=== PATIENT | female | born 1935 | race Caucasian/White ===

== ENCOUNTER 2018-02-26 18:04 | Inpatient (IN) ==
--- NOTE | 2018-02-26 18:40 | Emergency Department Note ---
Fall HPI - General Chief Complaint: Fall Stated Complaint: shakiness, fall Time Seen by Provider: 02/26/18 18:12 Source: patient Mode of arrival: ambulatory - History of Present Illness HPI Narrative: Temperature 98, pulse is 92 respiratory rate 22 blood pressure 139/66 pulse ox is 94%. Patient was seen on 02/22/18 cough with wheezing she is treated for possible pneumonia although the x-ray report reveals no obvious infiltrate. Patient states she is feeling weaker she had a fall yesterday she told the triage nurse that she hit her head possibly lost consciousness although she had changed the story on interviewing and denies any head involvement she is complaining of some low back pain however her main complaint is that she has been having some increased weakness. She does have a history of COPD and is a former smoker denies any chest pain is having headache. She is alert and oriented she knows where she is in response to questions appropriately no neurologic findings denies neck pain - Related Data Home Medications Medication Instructions Recorded Confirmed Albuterol Sulfate 2.5 mg IH BID 12/26/14 01/20/18 Fish Oil/Dha/Epa [Fish Oil 1,200 1 each PO DAILY 12/26/14 01/20/18 mg Fish Oil] Mirtazapine [Remeron] 15 mg PO HS 12/26/14 01/20/18 Mometasone/Formoterol [Dulera 100 2 puff IH BID 12/26/14 01/20/18 Mcg/5 Mcg Inhaler] Omeprazole [PriLOSEC] 40 mg PO ACB 12/26/14 01/20/18 Pramipexole [Mirapex] 0.25 - 0.5 mg PO HS 12/26/14 01/20/18 Pravastatin [Pravachol] 20 mg PO HS 12/26/14 01/20/18 Tiotropium Zullinger [Spiriva] 18 mcg INH DAILY 12/26/14 01/20/18 traZODone HCL [Desyrel] 75 mg PO HS 12/26/14 01/20/18 Fluticasone Propionate [Flonase] 1 spray NS DAILY 08/30/16 01/20/18 ascorbic acid (vitamin C) 500 mg 1 g PO QDAY tab 12/07/16 01/20/18 tablet cholecalciferol (vitamin D3) 2,000 2,000 unit PO QDAY cap 12/07/16 01/20/18 unit capsule cranberry 400 mg capsule 400 mg PO ONCE 12/07/16 01/20/18 magnesium oxide,aspartate,citrate mg PO 12/07/16 01/20/18 400 mg capsule multivitamin capsule 1 tab-cap PO QDAY 12/07/16 01/20/18 vit C 150 mg-vit E 30 unit-lutein 1 cap PO QDAY 12/07/16 01/20/18 5 [id number] 3 150 mg capsule vitamin B complex tablet 1 tab-cap PO QDAY 12/07/16 01/20/18 hydrocodone 7.5 mg-acetaminophen 1 tab PO Q6H 07/20/17 01/20/18 325 mg tablet losartan 50 mg-hydrochlorothiazide 1 tab PO QDAY 07/20/17 01/20/18 12.5 mg tablet Previous Rx's Medication Instructions Recorded Aspirin [Ecotrin] 325 mg PO QDAY #30 tab.ec 01/01/15 Ipratropium [Atrovent] 2.5 ml NEB Q6HRT #120 ampul.neb 01/31/15 mupirocin 2 % topical ointment 1 applic TOPICAL BID #30 g 07/27/17 Benzonatate [Tessalon Perle] 100 mg PO TID PRN 5 Days #15 cap 10/24/17 phenazopyridine 100 mg tablet 100 mg PO TID PRN #20 tab 01/20/18 Nitrofurantoin Monohyd/M-Cryst 100 mg PO BID #14 cap 02/01/18 [Macrobid 100 mg Capsule] Azithromycin [Zithromax] 250 mg PO DAILY #4 tab 02/22/18 guaiFENesin/CODEINE [Robitussin AC] 10 ml PO Q4HP PRN #240 ml 02/22/18 predniSONE [Prednisone] 20 mg PO DAILY #23 tab 02/22/18 Estrogen Cream 1 mg VAGINAL .QOD #60 g 02/24/18 Allergies Allergy/AdvReac Type Severity Reaction Status Date / Time cephalexin Allergy Itching Verified 02/26/18 18:09 doxycycline Allergy Itching Verified 02/26/18 18:09 levofloxacin Allergy Itching Verified 02/26/18 18:09 Sulfa (Sulfonamide Allergy Itching Verified 02/26/18 18:09 Antibiotics) Review of Systems All systems ED: reviewed and negative except as stated. Constitutional: Denies: fever, chills Eyes: Denies: eye pain ENT ED: Denies: ear pain Cardiovascular: Denies: chest pain, palpitations, dyspnea on exertion, orthopnea , edema Respiratory: Denies: shortness of breath, cough, wheezes, phlegm Gastrointestinal: Denies: abdominal pain Fall PMH - Past Medical History Medical history: Reports: COPD, dementia, GERD, hyperlipidemia, other (frequent UTIs) Psychiatric history: Reports: no psych history [employer] history: Reports: non-contributory - Social History smoking status: Former smoker Alcohol use: Reports: None Drug use: Reports: none Physical Exam Limitations: no limitations General appearance: alert Head: atraumatic, normocephalic Eye: Present: normal appearance, PERRL ENT: normal exam, normal oropharynx Neck: Present: normal inspection, full ROM Chest: Present: normal inspection. Absent: symmetric chest wall rise, tenderness Respiratory: Present: normal lung sounds bilaterally. Absent: respiratory distress, rales/crackles, wheezes Cardiovascular: Present: regular rate. Absent: normal rhythm, bradycardia, tachycardia Abdominal: Present: soft, distention Extremities: Present: normal inspection, full ROM Back: Present: normal inspection, full ROM, tenderness Neurological: Present: alert, oriented X3, CN II-XII intact, normal gait. Absent: motor sensory deficit Psychiatric: Present: normal affect, normal mood Course Vital Signs Temperature 98.0 F 02/26/18 18:04 Pulse Rate 92 H 02/26/18 18:04 Respiratory Rate 22 02/26/18 18:04 Blood Pressure 139/66 02/26/18 18:04 Pulse Oximetry (%) 94 02/26/18 18:04 Temperature 98.0 F 02/26/18 18:04 Pulse Rate 83 02/26/18 20:31 Respiratory Rate 18 02/26/18 20:31 Blood Pressure 125/68 02/26/18 20:31 Pulse Oximetry (%) 95 02/26/18 20:31 Fall - [facility] Narrative Medical decision making narrative: Head CT cervical CT showed no acute abnormalities. Lumbosacral spine revealed no acute injuries as well degenerative joint disease and stenosis seen in the lower lumbosacral region. Chest x-ray reviewed with radiologist she has a marked amount of fibrosis noted with possible infiltrate. Lactic acid is elevated at 2.6 the white count is 12,586 segs 11 lymphocytes sodium is 139 potassium 3.8 troponin less than 0.01 pro calcitonin less than 0.05. Dr. Srivastava, consulted patient to be admitted to [facility] - Lab Data Result diagrams: 02/26/18 18:32 02/26/18 18:32 Lab Results 02/26/18 02/26/18 02/26/18 Range/Units 18:32 18:32 18:32 WBC 12.5 H (4.5-11.0) K/mcL RBC 4.30 (4.00-5.20) M/mcL Hgb 12.1 (12.0-15.0) g/dL Hct 37.6 (36.0-48.0) % MCV 87.4 (80.0-100.0) fL MCH 28.1 (26.0-34.0) pg MCHC 32.1 (31.0-36.0) g/dL RDW 16.9 H (11.5-14.5) % Plt Count 298 (140-440) K/mcL MPV 8.7 (7.4-10.4) fL Total Counted 100 Seg Neutrophils % 86 H (38-78) % Band Neutrophils % Not Reportable Lymphocytes % 11 L (15-49) % Monocytes % (Manual) 3 (1-12) % Platelet Estimate Normal (NORMAL) RBC Morphology Abnorm A (NORMAL) Anisocytosis 1+ A (NONE SEEN) VBG Lactic Acid (0.5-2.2) mmol/L Sodium 139 (133-145) mmol/L Potassium 3.8 (3.3-5.1) mmol/L Chloride 102 (96-108) mmol/L Carbon Dioxide 23 (22-30) mmol/L Anion Gap 14.0 (8-16) BUN 20 (8-23) mg/dl Creatinine 0.7 (0.6-1.1) mg/dl GFR Calculation 80 Glucose 179 H (70-105) mg/dL Calcium 9.6 (8.6-10.4) mg/dl Total Bilirubin 0.2 (0.0-1.0) mg/dL AST 20 (0-37) U/l ALT 18 (0-40) U/l Alkaline Phosphatase 51 (39-117) U/L Troponin T < 0.01 (0-0.03) ng/ml Total Protein 7.3 (5.9-8.4) gm/dL Albumin 4.0 (3.2-5.2) gm/dL Globulin 3.3 (2.2-3.7) gm/dL Albumin/Globulin Ratio 1.2 (1.0-2.3) Procalcitonin (<0.10) ng/mL 02/26/18 02/26/18 Range/Units 18:32 18:56 WBC (4.5-11.0) K/mcL RBC (4.00-5.20) M/mcL Hgb (12.0-15.0) g/dL Hct (36.0-48.0) % MCV (80.0-100.0) fL MCH (26.0-34.0) pg MCHC (31.0-36.0) g/dL RDW (11.5-14.5) % Plt Count (140-440) K/mcL MPV (7.4-10.4) fL Total Counted Seg Neutrophils % (38-78) % Band Neutrophils % Lymphocytes % (15-49) % Monocytes % (Manual) (1-12) % Platelet Estimate (NORMAL) RBC Morphology (NORMAL) Anisocytosis (NONE SEEN) VBG Lactic Acid 2.6 H (0.5-2.2) mmol/L Sodium (133-145) mmol/L Potassium (3.3-5.1) mmol/L Chloride (96-108) mmol/L Carbon Dioxide (22-30) mmol/L Anion Gap (8-16) BUN (8-23) mg/dl Creatinine (0.6-1.1) mg/dl GFR Calculation Glucose (70-105) mg/dL Calcium (8.6-10.4) mg/dl Total Bilirubin (0.0-1.0) mg/dL AST (0-37) U/l ALT (0-40) U/l Alkaline Phosphatase (39-117) U/L Troponin T (0-0.03) ng/ml Total Protein (5.9-8.4) gm/dL Albumin (3.2-5.2) gm/dL Globulin (2.2-3.7) gm/dL Albumin/Globulin Ratio (1.0-2.3) Procalcitonin < 0.05 (<0.10) ng/mL Disposition Pt seen by CONGRESSIONAL DISTRICT AIDE/PA only: No Clinical Impression: Pneumonia Disposition: Xfer As Inpt ([facility]) Condition: Fair Referrals: Jorge A Chin DO [Primary Care Provider] - Time of Disposition: 20:36
--- NOTE | 2018-02-26 19:14 | Cat Scan Report ---
Fell and hit head with dizziness and shakiness TECHNIQUE: The brain was imaged without contrast at 2.5 mm intervals. Radiation exposure was limited using dose reduction technology. FINDINGS: The bone windows show no skull fracture. There is no intracranial hemorrhage, cerebral edema or evidence of an infarct. Moderate atrophy is present, predominantly involving the frontal and temporal lobes. Associated with this is dilatation of the frontal horns of the lateral ventricles. These are chronic stable findings. No abnormal extra-axial fluid collection is present. There are scattered calcified plaques in the cavernous portions of both internal carotids. There has been no significant change since 02/01/18. IMPRESSION: Age-related degenerative changes and no acute abnormality. Dr. Wilkerson was called with the results Interpreted and Authenticated by: Angelo Cornejo 02/26/18
[2018-02-26 19:18] LABS: Mean Cell Volume 87.4 fL (80.0-100.0); Mean Corpuscular HGB Conc 32.1 g/dL (31.0-36.0); Mean Corpuscular Hemoglobin 28.1 pg (26.0-34.0); Platelet Count 298 K/mcL (140-440); Red Cell Distribution Width 16.9 % (11.5-14.5)
--- NOTE | 2018-02-26 19:20 | Cat Scan Report ---
History: Fell with neck injury TECHNIQUE: The neck was imaged without contrast at 2.5 mm intervals. Sagittal and coronal reformats were created. The radiation exposure was limited using dose reduction technology. FINDINGS: There is a reversal of the normal lordotic curvature in the spine due to chronic degenerative disc disease and arthritis. No fracture is present. There is 2 mm grade 1 spondylolisthesis at C3-4 due to arthritis in the facet joints. There is severe arthritis on the left side at the articulation of the left lateral ring of C1 and the body of C2. There are spurs at this level. The margins of the spurs or sclerotic, which indicates there are chronic. In addition there is no soft tissue swelling at this level. There is moderately severe disc space narrowing with associated spurs at C5-6 and C6-7. There is arthritis in the facet joints bilaterally from C2-3 through C6-7. In addition there is spurring of the uncinate processes at several levels. This is causing severe stenosis of the right-sided neural foramen at C3-4 with moderate stenosis on the left at C4-5, bilaterally at C5-6 and bilaterally at C6-7. The central canal appears normal in caliber. No prevertebral soft tissue swelling is present. Patient has pulmonary fibrosis in both upper lobes with honeycombing anteriorly medially in the right upper lobe. IMPRESSION: No acute fracture Advanced cervical spondylosis at multiple levels as described above Interpreted and Authenticated by: Angelo Cornejo 02/26/18
[2018-02-26] MEDS ORDERED: AZITHROMYCIN 500 MG in DEXTROSE 5% IN WATER 250 ML IV ONE (19:28)
--- NOTE | 2018-02-26 19:29 | XRay Report ---
History: Difficulty breathing FINDINGS: There is moderate interstitial pulmonary fibrosis throughout both lungs. This is a chronic stable finding. No lobar consolidation has developed. There is no evidence of pleural effusion and no obvious mass is identified. Right diaphragm is elevated. There is a loop of colon interposed between the liver and right diaphragm. The heart size is normal. There has been no significant change since 02/22/18. IMPRESSION: Moderate pulmonary fibrosis and no acute abnormality Interpreted and Authenticated by: Angelo Cornejo 02/26/18
--- NOTE | 2018-02-26 19:29 | Cat Scan Report ---
HISTORY: Fell with low back pain TECHNIQUE: The spine was imaged without contrast at 2.5 mm intervals. Sagittal and coronal reformats were created. Radiation exposure was limited using dose reduction technology. FINDINGS: No fracture or destructive bone lesion are present. There is a rudimentary disc at S1 to normal. At L5-S1 patient has had a laminectomy performed. The disc spaces normal in height and there is a small bulge. Severe arthritis is present in the left facet with mild arthritis in the right. This is causing mild to moderate stenosis left-sided neural foramen. L4-5 disc is normal in height. There is a large broad-based posterior bulge. There is also arthritis in the facets and hypertrophy of ligamentum flavum. This is causing moderate central canal stenosis and severe stenosis of the lateral recesses on each side. There is also moderate stenosis of both neural foramina. L3-4 disc is normal in height. There is a small broad-based posterior bulge and moderate arthritis in the facets. This is causing mild central canal and bilateral neural foraminal stenosis. L2-3 disc is normal in height. There is a small bulge and mild arthritis in the facets. This is not causing significant stenosis. T12-L1 and L1-2 discs measures 2.0 cm. IMPRESSION: No fracture or evidence of acute spinal injury Degenerative changes at multiple levels with large posterior bulge at L4-5 causing moderate central canal stenosis and a moderate-sized bulge at L3-4 causing mild central canal stenosis. Arthritis in the facet joints at multiple levels Dr. Wilkerson was notified. Interpreted and Authenticated by: Angelo Cornejo 02/26/18
[2018-02-26] MEDS ORDERED: 0.9 % SODIUM CHLORIDE 1,000 ML IV SCH ×2 (19:30→20:45)
[2018-02-26 19:40] LABS: ALT/SGPT 18 U/l (0-40); Albumin/Globulin Ratio 1.2 (1.0-2.3); Alkaline Phosphatase 51 U/L (39-117); Anisocytosis 1+ (NONE SEEN); Blood Urea Nitrogen 20 mg/dl (8-23); Lymphocytes % 11 % (15-49); Monocytes % (Manual) 3 % (1-12); Platelet Estimate NORMAL (NORMAL); RBC Morphology ABNORM (NORMAL); Segmented Neutrophils % 86 % (38-78)
[2018-02-26] MEDS ORDERED: ONDANSETRON 4 MG/2 ML VIAL IV ONE (21:01)
[2018-02-26] MEDS ORDERED: ONDANSETRON 4 MG/2 ML VIAL IV PRN ×2 (21:09→21:53)
[2018-02-26] MEDS ORDERED: ACETAMINOPHEN 325 MG TABLET PO PRN ×2 (21:09→21:53)
[2018-02-26] MEDS ORDERED: IPRATROPIUM/ALBUTEROL 3 ML AMPUL.NEB NEB SCH (21:15)
[2018-02-26] MEDS ORDERED: AZITHROMYCIN 250 MG in DEXTROSE 5% IN WATER 250 ML IV SCH (21:15)
--- NOTE | 2018-02-26 21:18 | Internal Med History&Physical ---
Medical - H&P: [facility] Patient information: Note initiated : 02/26/18 at 9:15 pm Service Date, if different from initiated Date: [] Patient: Linda Cooper 83 y/o F admitted on for shakiness, fall. Chief Complaint: [] History of present illness: Ms. Cooper is a 83 year old F Presents the ER because of increasing weakness and falling and shakiness. Patient first presented to the ER several days ago because of shortness of breath productive cough over the previous 24 hours as well as wheezing. She was felt to have a COPD exacerbation, with questionable developing pneumonia. She was sent home on Zithromax steroids and to follow-up with a primary care doctor. Since that time she feels her coughing is continued at productive of yellow sputum, her shortness of breath is improving. However she is continued to getting to become weak, she fell yesterday on her bottom, and today she felt quite shaky. She is unable to care for herself at home and she is brought in by family members. In the ER she was found to have a mildly elevated white blood cell count, she was afebrile, she was tachypneic, blood pressure and heart rate were stable, she did have an elevated lactate, chest x-ray was per read no acute pathology but moderate fibrosis. Patient was given several liters of fluid and started on antibiotics. Patient denies any flulike symptoms but does complain of a headache and some generalized muscle aches. She does have some nausea as well and the chills. She does feel wheezy but this is common for her. She denies any chest pain. Review of Systems: Positive for weakness shakiness chills fatigue headache nausea , denies headache /fever/chills/nausea/vomiting/chest or abdominal pain/cough/dyspnea/diarrhea. Remaining 10 point review of systems reviewed negative Medical - H&P: [facility] Medical history: Medical History (Last Reviewed 01/20/18 @ 13:14 by LIZETTE Christie) Dysuria (Acute) Bladder infection (Acute) Left lower lobe pneumonia (Acute) Acute exacerbation of chronic obstructive airways disease (Acute) Constipation (Acute) Urinary tract infection without complication (Acute) UTI (urinary tract infection) (Acute) COPD exacerbation (Acute) Urinary tract infection (Acute) Bronchitis (Acute) Bronchitis (Acute) Right ankle tendonitis (Acute) Heel spur (Acute) Urinary tract infection (Acute) Cystitis (Acute) S/P hernia surgery (Acute) Past Surgical History (Last Reviewed 01/20/18 @ 13:14 by LIZETTE Christie) H/O total hip arthroplasty (Acute) History of surgery (Acute) S/P hysterectomy (Acute) S/P sclerotherapy of varicose veins (Acute) S/P tonsillectomy (Acute) Family History (Last Reviewed 01/20/18 @ 13:14 by LIZETTE Christie) Other Cancer Diabetes Hypertension Social History (Last Updated 01/20/18 @ 13:40 by LIZETTE Christie) Patient quit smoking 20 years ago Denies alcohol use Ambulates with a cane Lives by himself Medical - H&P: Meds Home Medications Medication Instructions Recorded Confirmed Type Albuterol Sulfate 2.5 mg IH BID 12/26/14 01/20/18 History Fish Oil/Dha/Epa [Fish Oil 1,200 1 each PO DAILY 12/26/14 01/20/18 History mg Fish Oil] Mirtazapine [Remeron] 15 mg PO HS 12/26/14 01/20/18 History Mometasone/Formoterol [Dulera 100 2 puff IH BID 12/26/14 01/20/18 History Mcg/5 Mcg Inhaler] Omeprazole [PriLOSEC] 40 mg PO ACB 12/26/14 01/20/18 History Pramipexole [Mirapex] 0.25 - 0.5 mg PO HS 12/26/14 01/20/18 History Pravastatin [Pravachol] 20 mg PO HS 12/26/14 01/20/18 History Tiotropium Williamson [Spiriva] 18 mcg INH DAILY 12/26/14 01/20/18 History traZODone HCL [Desyrel] 75 mg PO HS 12/26/14 01/20/18 History Aspirin [Ecotrin] 325 mg PO QDAY #30 tab.ec 01/01/15 01/20/18 Rx Ipratropium [Atrovent] 2.5 ml NEB Q6HRT #120 ampul.neb 01/31/15 01/20/18 Rx Fluticasone Propionate [Flonase] 1 spray NS DAILY 08/30/16 01/20/18 History ascorbic acid (vitamin C) 500 mg 1 g PO QDAY tab 12/07/16 01/20/18 History tablet cholecalciferol (vitamin D3) 2,000 2,000 unit PO QDAY cap 12/07/16 01/20/18 History unit capsule cranberry 400 mg capsule 400 mg PO ONCE 12/07/16 01/20/18 History magnesium oxide,aspartate,citrate mg PO 12/07/16 01/20/18 History 400 mg capsule multivitamin capsule 1 tab-cap PO QDAY 12/07/16 01/20/18 History vit C 150 mg-vit E 30 unit-lutein 1 cap PO QDAY 12/07/16 01/20/18 History 5 [id number] 3 150 mg capsule vitamin B complex tablet 1 tab-cap PO QDAY 12/07/16 01/20/18 History hydrocodone 7.5 mg-acetaminophen 1 tab PO Q6H 07/20/17 01/20/18 History 325 mg tablet losartan 50 mg-hydrochlorothiazide 1 tab PO QDAY 07/20/17 01/20/18 History 12.5 mg tablet mupirocin 2 % topical ointment 1 applic TOPICAL BID #30 g 07/27/17 01/20/18 Rx Benzonatate [Tessalon Perle] 100 mg PO TID PRN 5 Days #15 cap 10/24/17 01/20/18 Rx phenazopyridine 100 mg tablet 100 mg PO TID PRN #20 tab 01/20/18 01/20/18 Rx Nitrofurantoin Monohyd/M-Cryst 100 mg PO BID #14 cap 02/01/18 Rx [Macrobid 100 mg Capsule] Azithromycin [Zithromax] 250 mg PO DAILY #4 tab 02/22/18 Rx guaiFENesin/CODEINE [Robitussin AC] 10 ml PO Q4HP PRN #240 ml 02/22/18 Rx predniSONE [Prednisone] 20 mg PO DAILY #23 tab 02/22/18 Rx Estrogen Cream 1 mg VAGINAL .QOD #60 g 02/24/18 Rx Allergies Allergy/AdvReac Type Severity Reaction Status Date / Time cephalexin Allergy Itching Verified 02/26/18 18:09 doxycycline Allergy Itching Verified 02/26/18 18:09 levofloxacin Allergy Itching Verified 02/26/18 18:09 Sulfa (Sulfonamide Allergy Itching Verified 02/26/18 18:09 Antibiotics) Medical - H&P: Exam - Constitutional Vitals: Temp Pulse Resp BP Pulse Ox 98.0 F 77 22 124/66 93 02/26/18 18:04 02/26/18 20:46 02/26/18 20:46 02/26/18 20:46 02/26/18 20:46 Exam: General: Alert, Awake, No acute Distress HEENT: EOMI, pupils equal round reactive light, normocephalic atraumatic, dry mucous membranes CV: RRR, No murmurs, normal s1/s2 Pulm: Mild scattered wheezing, otherwise clear, no rhonchi Abd: soft, nontender, +BS x4 Ext: no clubbing/cyanosis/edema Neuro: Alert, no focal deficits, moves all extremities Skin: warm/dry Medical - H&P: Reslt - Labs CBC & Chem 7: 02/26/18 18:32 02/26/18 18:32 Labs: Short CBC 02/26/18 Range/Units 18:32 WBC 12.5 H (4.5-11.0) K/mcL Hgb 12.1 (12.0-15.0) g/dL Hct 37.6 (36.0-48.0) % Plt Count 298 (140-440) K/mcL BMP 02/26/18 18:32 Sodium 139 Potassium 3.8 Chloride 102 Carbon Dioxide 23 BUN 20 Creatinine 0.7 Glucose 179 H Calcium 9.6 Cardiac Enzymes 02/26/18 Range/Units 18:32 Troponin T < 0.01 (0-0.03) ng/ml Liver Function 02/26/18 Range/Units 18:32 Total Bilirubin 0.2 (0.0-1.0) mg/dL AST 20 (0-37) U/l ALT 18 (0-40) U/l Alkaline Phosphatase 51 (39-117) U/L Albumin 4.0 (3.2-5.2) gm/dL Medical - H&P: A/P - Narrative A/P Narrative: A: *Pneumonia, likely viral: *Sepsis: Secondary to above *Generalized weakness/fall: *Recent acute exacerbation COPD(is not on home oxygen): Improving *Pulmonary fibrosis: *HTN: P: -Finish course of IV azithromycin -Respiratory panel pending -IV fluid hydration -Follow-up lactate level -Scheduled and as needed nebs/IS/ Acapella -Sputum culture pending -Continue home medications except for her diuretic -PT/OT, CM for possible placement -ppx: Lovenox/home PPI
[2018-02-26] MEDS ORDERED: 0.9 % SODIUM CHLORIDE 10 ML SYRINGE IV SCH (22:00)
[2018-02-26] MEDS: 0.9 % SODIUM CHLORIDE 10 ML SYRINGE IV SCH (23:51)
[2018-02-27 02:13] LABS: Appearance,Urine CLEAR; Bacteria,Urine MOD /hpf (0); Bilirubin,Urine NEG (NEG); Color,Urine STRAW; Glucose,Urine (UA) NEGATIVE (NEG); Leukocyte Esterase,Urine NEG /uL (NEG); Protein,Urine NEG (NEG); Urine Blood NEG mg/dL (<0.03); Urine RBC < 1 /hpf (0-1); Urine Squamous Epithelial Cell < 1 /hpf (0-4); Urine Transitional Epi Cells < 1 /hpf (0-2); Urine WBC 1 /hpf (0-4); Urobilinogen,Urine NEG (NEG)
[2018-02-27] MEDS: IPRATROPIUM/ALBUTEROL 3 ML AMPUL.NEB NEB SCH ×3 (04:51→20:34)
[2018-02-27 05:43] LABS: Basophils # (Auto) 0 K/mcL (0.0-0.3); Basophils % (Auto) 0.2 % (0.0-2.0); Eosinophils # (Auto) 0 K/mcL (0.0-0.7); Eosinophils % (Auto) 0.2 % (0.0-7.0); Lymphocytes # (Auto) 3.7 K/mcL (1.5-4.8); Mean Cell Volume 88.5 fL (80.0-100.0); Mean Corpuscular HGB Conc 31.8 g/dL (31.0-36.0); Mean Corpuscular Hemoglobin 28.2 pg (26.0-34.0); Monocytes # (Auto) 1.2 K/mcL (0.1-0.9); Monocytes % (Auto) 8.6 % (1.0-12.0); Platelet Count 267 K/mcL (140-440); RBC 4.04 M/mcL (4.00-5.20); Red Cell Distribution Width 16.1 % (11.5-14.5)
[2018-02-27] MEDS: 0.9 % SODIUM CHLORIDE 10 ML SYRINGE IV SCH ×3 (06:10→22:18)
[2018-02-27 06:35] LABS: ALT/SGPT 16 U/l (0-40); Albumin 3.8 gm/dL (3.2-5.2); Albumin/Globulin Ratio 1.4 (1.0-2.3); Alkaline Phosphatase 46 U/L (39-117); Bilirubin,Direct < 0.2 mg/dL (0.0-0.3); Blood Urea Nitrogen 19 mg/dl (8-23); Gamma Glutamyl Transpeptidase 20 U/L (5-36)
[2018-02-27] MEDS ORDERED: HYDROCODONE/APAP 7.5/325MG TABLET PO PRN (07:15)
--- NOTE | 2018-02-27 07:19 | Internal Med Progress Note ---
Medical - PN: Subj Patient information: Note initiated : 02/27/18 at 7:16 am Service Date, if different from initiated Date: [] Patient: Linda Cooper 83 y/o F admitted on 02/26/18 for shakiness, fall. Chief Complaint: [] Interval history: Ms. Cooper is a 83 year old F Presents the ER because of increasing weakness and falling and shakiness. Patient first presented to the ER several days ago because of shortness of breath productive cough over the previous 24 hours as well as wheezing. She was felt to have a COPD exacerbation, with questionable developing pneumonia. She was sent home on Zithromax steroids and to follow-up with a primary care doctor. Since that time she feels her coughing is continued at productive of yellow sputum, her shortness of breath is improving. However she is continued to getting to become weak, she fell yesterday on her bottom, and today she felt quite shaky. She is unable to care for herself at home and she is brought in by family members. In the ER she was found to have a mildly elevated white blood cell count, she was afebrile, she was tachypneic, blood pressure and heart rate were stable, she did have an elevated lactate, chest x-ray was per read no acute pathology but moderate fibrosis. Patient was given several liters of fluid and started on antibiotics. Patient denies any flulike symptoms but does complain of a headache and some generalized muscle aches. She does have some nausea as well and the chills. She does feel wheezy but this is common for her. She denies any chest pain. 02/27 Difficult sleeping last night, new admission, and restless leg syndrome. Still very weak, has cough and some shortness of breath but mildly improving. Review of Systems: denies headache/fever/chills/nausea/vomiting/chest or abdominal pain/diarrhea. Otherwise see above. - Constitutional Vitals: Vital Signs Temp Pulse Resp BP Pulse Ox 97.2 F 72 16 166/75 92 02/27/18 03:45 02/27/18 04:51 02/27/18 04:51 02/27/18 03:45 02/27/18 03:45 Period Temp Pulse Resp BP Sys/Smith Pulse Ox Last 24 Hr 97.0 F-98.3 F 68-92 15-26 101-166/48-75 90-96 Intake and Output 02/26/18 02/27/18 02/27/18 21:59 05:59 13:59 Intake Total 250 / 250 360 / 360 Output Total 3 / 3 Balance 250 / 250 357 / 357 Weight 71.214 kg Intake & Output: Intake & Output 02/26/18 02/27/18 02/27/18 21:59 05:59 13:59 Intake Total 250 / 250 360 / 360 Output Total 3 / 3 Balance 250 / 250 357 / 357 Weight 71.214 kg Intake: IV 250 / 250 Zithromax 500 mg In Dextrose 5% 250 / 250 in Water 250 ml @ 250 mls/hr IV ONCE ONE Rx#:[id number] Oral 360 / 360 Output: # of times incontinent of urine 3 / 3 Other: Meal Soup, bread, crackers Percent of Meal Consumed 100% Feeding Ability Independent Exam: General: Alert, Awake, No acute Distress HEENT: EOMI, neck supple CV: RRR, No murmurs, normal s1/s2 Pulm: No wheezing today, no rhonchi Abd: soft, nontender, +BS x4 Ext: no clubbing/cyanosis/edema Neuro: Alert, no focal deficits, moves all extremities Skin: warm/dry Medical - PN: Obj Da - Labs CBC & Chem 7: 02/27/18 03:38 02/27/18 03:38 Labs: Abnormal Lab Results 02/27/18 02/27/18 02/27/18 03:38 03:38 01:30 WBC 14.2 H Hgb 11.4 L Hct 35.8 L RDW 16.1 H Gran # 9.3 H [place] # (Auto) 1.2 H Seg Neutrophils % Lymphocytes % RBC Morphology Anisocytosis VBG Lactic Acid Glucose Lactate Dehydrogenase 258 H Triglycerides 336 H Urine Bacteria Mod A 02/26/18 02/26/18 02/26/18 22:05 18:56 18:32 WBC 12.5 H Hgb Hct RDW 16.9 H Gran # [place] # (Auto) Seg Neutrophils % 86 H Lymphocytes % 11 L RBC Morphology Abnorm A Anisocytosis 1+ A VBG Lactic Acid < 0.2 L 2.6 H Glucose Lactate Dehydrogenase Triglycerides Urine Bacteria 02/26/18 18:32 WBC Hgb Hct RDW Gran # [place] # (Auto) Seg Neutrophils % Lymphocytes % RBC Morphology Anisocytosis VBG Lactic Acid Glucose 179 H Lactate Dehydrogenase Triglycerides Urine Bacteria Meds: Medications Acetaminophen (Tylenol) 650 mg PO Q6HP PRN PRN Reason: PAIN/FEVER > 101 Albuterol/Ipratropium (Duoneb) 3 ml NEB Q8H [facility] Last Admin: 02/27/18 04:51 Dose: 3 ml Enoxaparin Sodium (Lovenox) 40 mg SQ DAILY [facility] Famotidine (Pepcid) 20 mg PO BID [facility] Azithromycin 250 mg/ Dextrose 250 mls @ 250 mls/hr IV Q24H [facility] Stop: 03/01/18 09:59 Ondansetron HCl (Zofran) 4 mg IV Q4HP PRN PRN Reason: Nausea And Vomiting Prednisone (Prednisone) 20 mg PO QAC [facility] Sodium Chloride (Saline Flush) 10 ml IV Q8 [facility] Last Admin: 02/27/18 06:10 Dose: 10 ml Medical - PN: A/P - Time Spent With Patient Total time spent is greater than 50% in coordination of care (as documented) at patient's floor/unit and/or counseling patient: - Narrative A/P Narrative: A: *Pneumonia, likely viral: -Resp panel neg, PCT low. *Sepsis: Secondary to above, lactic acidosis resolved quickly *Generalized weakness/fall: *Recent acute exacerbation COPD(is not on home oxygen): Improving *Pulmonary fibrosis: *HTN: P: -Finish course of IV azithromycin -IV fluid hydration d/c -Scheduled and as needed nebs/IS/ Acapella -taper steroids -Sputum culture pending -Continue home medications except for her diuretic -PT/OT, CM for possible placement -ppx: Lovenox/home PPI Medical - PN: Qual - VTE Deep Vein Thrombosis/Pulmonary Embolism Present on Admission: No
[2018-02-27] MEDS ORDERED: predniSONE 20 MG TABLET PO SCH (08:00)
[2018-02-27] MEDS: FAMOTIDINE 20 MG TABLET PO SCH ×2 (08:09→20:27)
[2018-02-27] MEDS: ENOXAPARIN 40 MG/0.4 ML SYRINGE SQ SCH (08:09)
[2018-02-27] MEDS ORDERED: ENOXAPARIN 40 MG/0.4 ML SYRINGE SQ SCH (09:00)
[2018-02-27] MEDS ORDERED: FAMOTIDINE 20 MG TABLET PO SCH (09:00)
[2018-02-27] MEDS: AZITHROMYCIN 250 MG in DEXTROSE 5% IN WATER 250 ML IV SCH (10:00)
--- NOTE | 2018-02-27 10:20 | XRay Report ---
HISTORY: COPD, fell, shakiness and possible pulmonary infiltrate FINDINGS: There is moderate interstitial fibrosis throughout both lungs with the greatest involvement in the left lower lobe. There is no lobar consolidation and no evidence of mass or pleural effusion. The right diaphragm is mildly elevated and there is a loop of bowel interposed between the diaphragm and right lobe of liver. These are chronic stable findings. The heart size is normal. The pulmonary vessels are partially obscured by the overlying pulmonary fibrosis. There has been no significant change since 02/22/18. IMPRESSION: Stable pulmonary fibrosis and no acute abnormality Interpreted and Authenticated by: Angelo Cornejo 02/27/18
[2018-02-27] MEDS ORDERED: guaiFENesin 600 MG TAB.SR.12H PO PRN (11:10)
[2018-02-27] MEDS ORDERED: guaiFENesin 600 MG TAB.SR.12H PO ONE (11:11)
[2018-02-27] MEDS: MOMETASONE INH SCH ×2 (11:34→20:28)
[2018-02-27] MEDS: FORMOTEROL INH SCH ×2 (11:34→20:28)
--- NOTE | 2018-02-27 11:51 | Discharge Summary ---
Medical - DS: Prov Patient information: Note initiated : 02/27/18 at 11:49 am Service Date, if different from initiated Date: [] Patient: Linda Cooper 83 y/o F admitted on 02/26/18 for shakiness, fall. Chief Complaint: [] Date of admission: 02/26/18 21:52 Discharge date: 02/28/18 Primary care physician: Jorge A Chin Consults: 02/26/18 Consult to Physician [CONS] Stat Comment: Consulting Provider: Adolfo Mensah Reason For Exam: Physician to Consult Medical - DS: Meds - Discharge Medications Active and Home Medications: Home Medications Albuterol Sulfate 2.5 mg IH BID 12/26/14 [History Confirmed 02/26/18 Last Taken 02/26/18 09:00] Mirtazapine [Remeron] 15 mg PO HS 12/26/14 [History Confirmed 02/26/18 Last Taken 02/25/18 22:30] Mometasone/Formoterol [Dulera 100 Mcg/5 Mcg Inhaler] 2 puff IH BID 12/26/14 [ History Confirmed 02/26/18 Last Taken 02/26/18 09:00] Omeprazole [PriLOSEC] 40 mg PO ACB 12/26/14 [History Confirmed 02/26/18 Last Taken 02/26/18 09:00] Pramipexole [Mirapex] 0.25 - 0.5 mg PO HS 12/26/14 [History Confirmed 02/26/18 Last Taken 12/30/14] Pravastatin [Pravachol] 20 mg PO HS 12/26/14 [History Confirmed 02/26/18 Last Taken 12/30/14] Tiotropium [place] [Spiriva] 18 mcg INH DAILY 12/26/14 [History Confirmed Last Taken 02/26/18 09:00] traZODone HCL [Desyrel] 75 mg PO HS 12/26/14 [History Confirmed 02/26/18 Last Taken 02/25/18 22:30] cranberry 400 mg capsule 400 mg PO ONCE 12/07/16 [History Confirmed 02/26/18 Last Taken 02/26/18 09:00] multivitamin capsule 1 tab-cap PO QDAY 12/07/16 [History Confirmed 02/26/18 Last Taken Unknown] hydrocodone 7.5 mg-acetaminophen 325 mg tablet 1 tab PO Q6H 07/20/17 [History Confirmed 02/26/18 Last Taken Unknown] losartan 50 mg-hydrochlorothiazide 12.5 mg tablet 1 tab PO QDAY 07/20/17 [ History Confirmed 02/26/18 Last Taken Unknown] mupirocin 2 % topical ointment 1 applic TOPICAL BID #30 g 07/27/17 [Rx Confirmed 02/26/18 Last Taken Unknown] phenazopyridine 100 mg tablet 100 mg PO TID PRN #20 tab 01/20/18 [Rx Confirmed 02/26/18 Last Taken Unknown] Azithromycin [Zithromax] 250 mg PO DAILY #4 tab 02/22/18 [Rx Confirmed 02/26/18 Last Taken Unknown] guaiFENesin/CODEINE [Robitussin AC] 10 ml PO Q4HP PRN #240 ml 02/22/18 [Rx Confirmed 02/26/18 Last Taken 02/26/18 09:00] predniSONE [Prednisone] 20 mg PO DAILY #23 tab 02/22/18 [Rx Confirmed 02/26/18 Last Taken 02/26/18 09:00] Estrogen Cream 1 mg VAGINAL .QOD #60 g 02/24/18 [Rx Confirmed 02/26/18 Last Taken Unknown] Medical - DS: Hosp Hospital course: Mr. Cooper is a 83 year old F Ms. Cooper is a 83 year old F Presents the ER because of increasing weakness and falling and shakiness. Patient first presented to the ER several days ago because of shortness of breath productive cough over the previous 24 hours as well as wheezing. She was felt to have a COPD exacerbation, with questionable developing pneumonia. She was sent home on Zithromax steroids and to follow-up with a primary care doctor. Since that time she feels her coughing is continued at productive of yellow sputum, her shortness of breath is improving. However she is continued to getting to become weak, she fell yesterday on her bottom, and today she felt quite shaky. She is unable to care for herself at home and she is brought in by family members. In the ER she was found to have a mildly elevated white blood cell count, she was afebrile, she was tachypneic, blood pressure and heart rate were stable, she did have an elevated lactate, chest x-ray was per read no acute pathology but moderate fibrosis. Patient was given several liters of fluid and started on antibiotics. Patient denies any flulike symptoms but does complain of a headache and some generalized muscle aches. She does have some nausea as well and the chills. She does feel wheezy but this is common for her. She denies any chest pain. 02/27 Difficult sleeping last night, new admission, and restless leg syndrome. Still very weak, has cough and some shortness of breath but mildly improving. 02/28 No issues overnight, no coughing, no noticeable shortness of breath, walked down the santos with PT today. Stable for discharge. Oxygenating well on room air. Discharge diagnosis: pneumonia sepsis generalized weakness falling - Time Spent with Patient Total time spent providing and/or coordinating discharge services: Medical - DS: Exam - Constitutional Vitals: Vital Signs Temp Pulse Pulse Resp BP BP Pulse Ox 02/27/18 08:00 98.0 F 16 122/76 96 02/27/18 04:51 72 16 02/27/18 03:45 97.2 F 68 15 166/75 92 02/27/18 00:28 97.0 F 73 16 101/62 96 02/26/18 23:47 101/62 02/26/18 23:46 107/60 02/26/18 22:00 72 129/71 92 02/26/18 21:58 121/60 02/26/18 21:52 98.3 F 75 18 129/71 93 02/26/18 21:46 75 17 121/60 91 02/26/18 21:31 76 17 125/58 90 02/26/18 21:16 75 19 126/63 93 02/26/18 21:09 98.3 F 75 18 129/71 93 02/26/18 21:01 74 16 142/66 93 02/26/18 20:46 77 22 124/66 93 02/26/18 20:31 83 18 125/68 95 02/26/18 20:30 80 26 H 93 02/26/18 20:16 82 21 119/61 93 02/26/18 20:01 89 17 130/56 94 02/26/18 19:46 81 21 127/58 93 02/26/18 19:31 86 19 123/62 92 02/26/18 19:16 88 19 126/54 90 02/26/18 19:12 85 24 H 93 02/26/18 19:11 86 19 114/64 93 02/26/18 18:31 87 25 H 115/57 93 02/26/18 18:22 87 135/48 93 02/26/18 18:04 98.0 F 92 H 22 139/66 94 Intake and Output 02/26/18 02/27/18 02/27/18 21:59 05:59 13:59 Intake Total 250 / 250 360 / 360 600 / 600 Output Total 3 / 3 Balance 250 / 250 357 / 357 600 / 600 Intake: IV 250 / 250 Zithromax 500 mg In Dextrose 5% 250 / 250 in Water 250 ml @ 250 mls/hr IV ONCE ONE Rx#:[id number] Oral 360 / 360 600 / 600 Output: # of times incontinent of urine 3 / 3 Other: Meal Soup, bread, crackers Breakfast Percent of Meal Consumed 100% 100% Feeding Ability Independent Independent Weight 71.214 kg Medical - DS: Data Labs on day of discharge: Labs from last 24 hours 02/27/18 02/27/18 02/27/18 03:38 03:38 01:30 WBC 14.2 H RBC 4.04 Hgb 11.4 L Hct 35.8 L MCV 88.5 MCH 28.2 MCHC 31.8 RDW 16.1 H Plt Count 267 MPV 8.4 Gran % 65.0 Lymph % (Auto) 26.0 [place] % (Auto) 8.6 Eos % (Auto) 0.2 Baso % (Auto) 0.2 Gran # 9.3 H Lymph # (Auto) 3.7 [place] # (Auto) 1.2 H Eos # (Auto) 0 Baso # (Auto) 0 Total Counted Seg Neutrophils % Band Neutrophils % Lymphocytes % Monocytes % (Manual) Platelet Estimate RBC Morphology Anisocytosis VBG Lactic Acid Sodium 140 Potassium 4.0 Chloride 101 Carbon Dioxide 29 Anion Gap 10.0 BUN 19 Creatinine 0.6 GFR Calculation 84 Glucose 88 Uric Acid 3.0 Calcium 9.4 Phosphorus 2.9 Magnesium 2.1 Total Bilirubin 0.2 Direct Bilirubin < 0.2 GGT 20 AST 18 ALT 16 Alkaline Phosphatase 46 Lactate Dehydrogenase 258 H Troponin T Total Protein 6.6 Albumin 3.8 Globulin 2.8 Albumin/Globulin Ratio 1.4 Triglycerides 336 H Procalcitonin Urine Color Straw Urine Appearance Clear Urine pH 6.0 Ur Specific [place] 1.010 Urine Protein Neg Urine Glucose (UA) Negative Urine Ketones Neg Urine Occult Blood Neg Urine Nitrate Neg Urine Bilirubin Neg Urine Urobilinogen Neg Ur Leukocyte Esterase Neg Urine RBC < 1 Urine WBC 1 Ur Squamous Epith Cells < 1 Ur Transition Epith Cell < 1 Urine Bacteria Mod A Ur Culture Indicated? Yes 02/26/18 02/26/18 02/26/18 22:05 18:56 18:32 WBC RBC Hgb Hct MCV MCH MCHC RDW Plt Count MPV Gran % Lymph % (Auto) [place] % (Auto) Eos % (Auto) Baso % (Auto) Gran # Lymph # (Auto) [place] # (Auto) Eos # (Auto) Baso # (Auto) Total Counted Seg Neutrophils % Band Neutrophils % Lymphocytes % Monocytes % (Manual) Platelet Estimate RBC Morphology Anisocytosis VBG Lactic Acid < 0.2 L 2.6 H Sodium Potassium Chloride Carbon Dioxide Anion Gap BUN Creatinine GFR Calculation Glucose Uric Acid Calcium Phosphorus Magnesium Total Bilirubin Direct Bilirubin GGT AST ALT Alkaline Phosphatase Lactate Dehydrogenase Troponin T Total Protein Albumin Globulin Albumin/Globulin Ratio Triglycerides Procalcitonin < 0.05 Urine Color Urine Appearance Urine pH Ur Specific [place] Urine Protein Urine Glucose (UA) Urine Ketones Urine Occult Blood Urine Nitrate Urine Bilirubin Urine Urobilinogen Ur Leukocyte Esterase Urine RBC Urine WBC Ur Squamous Epith Cells Ur Transition Epith Cell Urine Bacteria Ur Culture Indicated? 02/26/18 02/26/18 02/26/18 18:32 18:32 18:32 WBC 12.5 H RBC 4.30 Hgb 12.1 Hct 37.6 MCV 87.4 MCH 28.1 MCHC 32.1 RDW 16.9 H Plt Count 298 MPV 8.7 Gran % Lymph % (Auto) [place] % (Auto) Eos % (Auto) Baso % (Auto) Gran # Lymph # (Auto) [place] # (Auto) Eos # (Auto) Baso # (Auto) Total Counted 100 Seg Neutrophils % 86 H Band Neutrophils % Not Reportable Lymphocytes % 11 L Monocytes % (Manual) 3 Platelet Estimate Normal RBC Morphology Abnorm A Anisocytosis 1+ A VBG Lactic Acid Sodium 139 Potassium 3.8 Chloride 102 Carbon Dioxide 23 Anion Gap 14.0 BUN 20 Creatinine 0.7 GFR Calculation 80 Glucose 179 H Uric Acid Calcium 9.6 Phosphorus Magnesium Total Bilirubin 0.2 Direct Bilirubin GGT AST 20 ALT 18 Alkaline Phosphatase 51 Lactate Dehydrogenase Troponin T < 0.01 Total Protein 7.3 Albumin 4.0 Globulin 3.3 Albumin/Globulin Ratio 1.2 Triglycerides Procalcitonin Urine Color Urine Appearance Urine pH Ur Specific [place] Urine Protein Urine Glucose (UA) Urine Ketones Urine Occult Blood Urine Nitrate Urine Bilirubin Urine Urobilinogen Ur Leukocyte Esterase Urine RBC Urine WBC Ur Squamous Epith Cells Ur Transition Epith Cell Urine Bacteria Ur Culture Indicated? Preliminary micro results at discharge 02/26/18 23:00 Sputum Culture - Preliminary Sputum - Induced Medical - DS: A/P - Patient/Caregiver Discharge Instructions Activity: as per physical therapy Diet: Regular Diet Prescriptions: predniSONE [Prednisone] 10 mg PO [facility] #1 tab - Follow up Plan Follow up with: Jorge A Chin DO [Primary Care Provider] - Disposition: [facility] Prognosis: Fair Rehab Potential: Fair Medical - DS: Qual - VTE Deep Vein Thrombosis/Pulmonary Embolism Present on Admission: No
[2018-02-27] MEDS ORDERED: MIRTAZAPINE 15 MG TABLET PO SCH (21:00)
[2018-02-27] MEDS ORDERED: traZODone HCL 50 MG TABLET PO SCH (21:00)
[2018-02-27] MEDS ORDERED: PRAMIPEXOLE 0.25 MG TABLET PO SCH (21:00)
[2018-02-28] MEDS: IPRATROPIUM/ALBUTEROL 3 ML AMPUL.NEB NEB SCH (05:10)
[2018-02-28] MEDS: 0.9 % SODIUM CHLORIDE 10 ML SYRINGE IV SCH (05:10)
[2018-02-28 05:41] LABS: Mean Cell Volume 87.7 fL (80.0-100.0); Mean Corpuscular HGB Conc 32.3 g/dL (31.0-36.0); Mean Corpuscular Hemoglobin 28.4 pg (26.0-34.0); Platelet Count 258 K/mcL (140-440); RBC 3.92 M/mcL (4.00-5.20); Red Cell Distribution Width 16.3 % (11.5-14.5)
[2018-02-28 05:53] LABS: Blood Urea Nitrogen 19 mg/dl (8-23)
[2018-02-28 06:15] LABS: Anisocytosis 1+ (NONE SEEN); Basophils % (Manual) 1 % (0-2); Lymphocytes % 40 % (15-49); Monocytes % (Manual) 5 % (1-12); Platelet Estimate NORMAL (NORMAL); RBC Morphology ABNORMAL (NORMAL); Segmented Neutrophils % 54 % (38-78)
--- NOTE | 2018-02-28 07:07 | Internal Med Progress Note ---
Medical - PN: Subj Patient information: Note initiated : 02/28/18 at 7:05 am Service Date, if different from initiated Date: [] Patient: Linda Cooper 83 y/o F admitted on 02/26/18 for shakiness, fall. Chief Complaint: [] Interval history: Ms. Cooper is a 83 year old F Presents the ER because of increasing weakness and falling and shakiness. Patient first presented to the ER several days ago because of shortness of breath productive cough over the previous 24 hours as well as wheezing. She was felt to have a COPD exacerbation, with questionable developing pneumonia. She was sent home on Zithromax steroids and to follow-up with a primary care doctor. Since that time she feels her coughing is continued at productive of yellow sputum, her shortness of breath is improving. However she is continued to getting to become weak, she fell yesterday on her bottom, and today she felt quite shaky. She is unable to care for herself at home and she is brought in by family members. In the ER she was found to have a mildly elevated white blood cell count, she was afebrile, she was tachypneic, blood pressure and heart rate were stable, she did have an elevated lactate, chest x-ray was per read no acute pathology but moderate fibrosis. Patient was given several liters of fluid and started on antibiotics. Patient denies any flulike symptoms but does complain of a headache and some generalized muscle aches. She does have some nausea as well and the chills. She does feel wheezy but this is common for her. She denies any chest pain. 02/27 Difficult sleeping last night, new admission, and restless leg syndrome. Still very weak, has cough and some shortness of breath but mildly improving. 02/28 No issues overnight, no coughing, no noticeable shortness of breath, walked down the santos with PT today. Review of Systems: denies headache/fever/chills/nausea/vomiting/chest or abdominal pain/diarrhea. Otherwise see above. - Constitutional Vitals: Vital Signs Temp Pulse Resp BP Pulse Ox 98.4 F 66 18 124/64 92 02/28/18 04:00 02/28/18 04:00 02/28/18 04:00 02/28/18 04:00 02/28/18 04:00 Period Temp Pulse Resp BP Sys/Smith Pulse Ox Last 24 Hr 97.3 F-98.4 F 66-83 16-20 102-147/58-78 92-96 Intake and Output 02/27/18 02/28/18 02/28/18 21:59 05:59 13:59 Intake Total 850 / 850 480 / 480 Output Total / 2 / 2 Balance 846 / 846 478 / 478 Weight 71.214 kg Intake & Output: Intake & Output 02/27/18 02/28/18 02/28/18 21:59 05:59 13:59 Intake Total 850 / 850 480 / 480 Output Total / 4 2 / 2 Balance 846 / 846 478 / 478 Weight 71.214 kg Intake: IV 250 / 250 Zithromax 250 mg In Dextrose 5% 250 / 250 in Water 250 ml @ 250 mls/hr IV Q24H [facility] Rx#:[id number] Oral 600 / 600 GI Tube Flush 480 / 480 Output: # of times incontinent of urine Other: Meal Dinner Percent of Meal Consumed 100% Feeding Ability Independent Urine Odor Strong # Voids 1 1 Exam: General: Alert, Awake, No acute Distress HEENT: EOMI, neck supple CV: RRR, No murmurs, normal s1/s2 Pulm: No wheezing today, no rhonchi Abd: soft, nontender, +BS x4 Ext: no clubbing/cyanosis/edema Neuro: Alert, no focal deficits, moves all extremities Skin: warm/dry Medical - PN: Obj Da - Labs CBC & Chem 7: 02/28/18 03:35 02/28/18 03:35 Labs: Abnormal Lab Results 02/28/18 02/27/18 02/27/18 03:35 03:38 03:38 WBC 14.7 H 14.2 H RBC 3.92 L Hgb 11.1 L 11.4 L Hct 34.4 L 35.8 L RDW 16.3 H 16.1 H Gran # 9.3 H [place] # (Auto) 1.2 H Seg Neutrophils % Lymphocytes % RBC Morphology Anisocytosis 1+ A VBG Lactic Acid Glucose Lactate Dehydrogenase 258 H Triglycerides 336 H Urine Bacteria 02/27/18 02/26/18 02/26/18 01:30 22:05 18:56 WBC RBC Hgb Hct RDW Gran # [place] # (Auto) Seg Neutrophils % Lymphocytes % RBC Morphology Anisocytosis VBG Lactic Acid < 0.2 L 2.6 H Glucose Lactate Dehydrogenase Triglycerides Urine Bacteria Mod A 02/26/18 02/26/18 18:32 18:32 WBC 12.5 H RBC Hgb Hct RDW 16.9 H Gran # [place] # (Auto) Seg Neutrophils % 86 H Lymphocytes % 11 L RBC Morphology Abnorm A Anisocytosis 1+ A VBG Lactic Acid Glucose 179 H Lactate Dehydrogenase Triglycerides Urine Bacteria Meds: Medications Acetaminophen (Tylenol) 650 mg PO Q6HP PRN PRN Reason: PAIN/FEVER > 101 Hydrocodone Bitart/Acetaminophen ([place] 7.5/325mg) 1 tab PO Q6HP PRN PRN Reason: Pain Last Admin: 02/27/18 22:55 Dose: 1 tab Albuterol/Ipratropium (Duoneb) 3 ml NEB Q8H [facility] Last Admin: 02/28/18 05:10 Dose: 3 ml Enoxaparin Sodium (Lovenox) 40 mg SQ DAILY [facility] Last Admin: 02/27/18 08:09 Dose: 40 mg Famotidine (Pepcid) 20 mg PO BID [facility] Last Admin: 02/27/18 20:27 Dose: 20 mg Guaifenesin (Mucinex) 600 mg PO BIDP PRN PRN Reason: Congestion Last Admin: 02/27/18 20:26 Dose: 600 mg Azithromycin 250 mg/ Dextrose 250 mls @ 250 mls/hr IV Q24H [facility] Stop: 03/01/18 09:59 Last Infusion: 02/27/18 20:03 Dose: Infused Mirtazapine (Remeron) 15 mg PO [facility] Last Admin: 02/27/18 20:26 Dose: 15 mg Ondansetron HCl (Zofran) 4 mg IV Q4HP PRN PRN Reason: Nausea And Vomiting Mometasone/Formoterol [Dulera] 100/5 Mcg Inhaler 2 dose INH BID [facility] Last Admin: 02/27/18 20:28 Dose: Not Given Pramipexole Dihydrochloride (Mirapex) 0.25 - 0.5 mg PO [facility] Last Admin: 02/27/18 20:26 Dose: 0.25 mg Prednisone (Prednisone) 20 mg PO [facility] Last Admin: 02/27/18 08:09 Dose: 20 mg Sodium Chloride (Saline Flush) 10 ml IV Q8 [facility] Last Admin: 02/28/18 05:10 Dose: 10 ml Trazodone HCl (Desyrel) 75 mg PO HS [facility] Last Admin: 02/27/18 20:26 Dose: 75 mg Medical - PN: A/P - Time Spent With Patient Total time spent is greater than 50% in coordination of care (as documented) at patient's floor/unit and/or counseling patient: - Narrative A/P Narrative: A: *Pneumonia, likely viral: -Resp panel neg, PCT low. -persistent leukocytosis, steroid induced, afebrile, no bandemia, clinically improved, Cx's neg, SC neg *Sepsis: Secondary to above, lactic acidosis resolved quickly *Generalized weakness/fall: Improving, walked down the santos with PT today *Recent acute exacerbation COPD(is not on home oxygen): Improving *Pulmonary fibrosis: *HTN: P: -Finished course of IV azithromycin -Scheduled and as needed nebs/IS/ Acapella -taper steroids -Continue home medications except for her diuretic -PT/OT, CM for possible placement -ppx: Lovenox/home PPI Medical - PN: Qual - VTE Deep Vein Thrombosis/Pulmonary Embolism Present on Admission: No
[2018-02-28] MEDS ORDERED: MAGNESIUM SULFATE 2 GM/50 ML BAG IV PRN (07:40)
[2018-02-28] MEDS ORDERED: POTASSIUM PHOSPHATE 20 MEQ in DEXTROSE 5% IN WATER 250 ML IV PRN (07:41)
[2018-02-28] MEDS ORDERED: POTASSIUM CHLORIDE 40 MEQ in DEXTROSE 5% IN WATER 500 ML IV PRN (07:43)
[2018-02-28] MEDS ORDERED: predniSONE 10 MG TABLET PO SCH (08:00)
[2018-02-28] MEDS: AZITHROMYCIN 250 MG in DEXTROSE 5% IN WATER 250 ML IV SCH (08:41)
[2018-02-28] MEDS: ENOXAPARIN 40 MG/0.4 ML SYRINGE SQ SCH (08:41)
[2018-02-28] MEDS: FAMOTIDINE 20 MG TABLET PO SCH (08:43)
[2018-02-28] MEDS: MOMETASONE INH SCH (08:43)
[2018-02-28] MEDS: FORMOTEROL INH SCH (08:43)
== END 2018-02-28 12:44 | DRG 871 ==
LOC: ED 18:04 → ICU 21:49
PROVIDERS: ADMIT Internal Medicine; ATTEND Internal Medicine
CPT/HCPCS: 84145; 87632; 90686; 97161; 99223; 99238; J0456; J1650; J2405; J7060; J7620; J7620-GY

== ENCOUNTER 2018-08-08 16:39 | Inpatient (IN) ==
--- NOTE | 2018-08-08 17:00 | Emergency Department Note ---
SOB HPI - General Chief Complaint: Shortness of Breath/Dyspnea Stated Complaint: shortness of breath x 1 day Time Seen by Provider: 08/08/18 16:50 Source: patient Mode of arrival: ambulatory Limitations: no limitations - History of Present Illness This pleasant 83-year-old female comes emergency room with onset yesterday of feeling short of breath. She has a history of COPD with multiple exacerbations. She has been on prednisone intermittently in the past. She was recently diagnosed with a UTI and placed on nitrofurantoin. She has had no exposures to influenza that she knows of. She has had some cough and some wheezing and phlegm. Some of this is chronic and some of this has actually worsened with some white and some brown phlegm. No associated runny nose or sore throat. REVIEW OF SYSTEMS: Denies chest pain. Denies abdominal pain, nausea, vomiting. Has had dysuria with her recent UTI which is improving. No back pain No headaches but has felt some weakness and lightheadedness. Has some chronic anxiety and chronic depression. - Related Data Home Medications Medication Instructions Recorded Confirmed Mometasone/Formoterol [Dulera 100 2 puff IH BID 12/26/14 08/08/18 Mcg/5 Mcg Inhaler] Omeprazole [Prilosec] 40 mg PO ACB 12/26/14 08/08/18 Pravastatin [Pravachol] 20 mg PO HS 12/26/14 08/08/18 Tiotropium [place] [Spiriva] 18 mcg INH DAILY 12/26/14 08/08/18 traZODone HCL [Desyrel] 75 mg PO HS 12/26/14 08/08/18 multivitamin capsule 1 tab-cap PO QDAY 12/07/16 08/08/18 losartan 50 mg-hydrochlorothiazide 1 tab PO QDAY 07/20/17 08/08/18 12.5 mg tablet ipratropium-albuterol 0.5 mg-3 3 ml INHALATION BID ml 05/31/18 08/08/18 mg(2.5 mg base)/3 mL nebulization soln Hydrocodone/APAP 7.5/325Mg [[place] 1 tab PO Q6HP PRN 08/08/18 08/08/18 7.5-325Mg] Mirtazapine 7.5 mg PO HS 08/08/18 08/08/18 Pramipexole [Mirapex] 0.25 mg PO HS 08/08/18 08/09/18 Previous Rx's Medication Instructions Recorded mupirocin 2 % topical ointment 1 applic TOPICAL BID #30 g 07/27/17 Nitrofurantoin Macrocrystal 100 mg PO BID 7 Days #14 cap 08/06/18 [Nitrofurantoin] Allergies Allergy/AdvReac Type Severity Reaction Status Date / Time atorvastatin [From Lipitor] Allergy Mild myalgia Verified 08/09/18 05:58 cephalexin Allergy Mild Itching Verified 08/08/18 16:44 Cephalosporins Allergy Mild Itching Verified 08/09/18 11:07 doxycycline Allergy Mild Itching Verified 08/08/18 16:44 ezetimibe [From Zetia] Allergy Mild myalgia Verified 08/09/18 05:58 levofloxacin Allergy Mild Itching Verified 08/08/18 16:44 Sulfa (Sulfonamide Allergy Mild Itching Verified 08/08/18 16:44 Antibiotics) Past Medical History - Past Medical History Medical history: Reports: COPD, dementia, GERD, hyperlipidemia, other. Denies: chronic anticoagulation (except daily aspirin.), CVA, DVT, myocardial infarction, pulmonary embolus Psychiatric history: Reports: no psych history COMPUTER TECHNICAL SPECIALIST history: Reports: non-contributory Surgical history ED: Reports: herniorrhaphy, hip replacement, hysterectomy, tonsillectomy, vascular surgery, other - Social History smoking status: Former smoker (Quit 35 years previously) Alcohol use: Reports: None Drug use: Reports: none. Denies: marijuana Physical Exam Limitations: no limitations General appearance: alert, in no apparent distress Head: atraumatic, normocephalic Eye: Present: normal appearance, PERRL, EOMI. Absent: scleral icterus, conjunctival injection ENT: normal oropharynx, mucous membranes moist Neck: Present: trachea midline. Absent: lymphadenopathy, thyromegaly Chest: Present: symmetric chest wall rise, other (Slight or mild elevation of shoulders with breathing effort.) Respiratory: Present: rales/crackles, wheezes. Absent: respiratory distress, stridor, accessory muscle use, prolonged expiratory phase Cardiovascular: Present: regular rate, normal rhythm, systolic murmur (1-2/6 very soft early systolic at the left midsternal border area.). Absent: diastolic murmur Abdominal: Present: soft. Absent: distention, tenderness, guarding, rebound, rigidity, organomegaly, mass Extremities: Absent: pedal edema, pretibial edema, calf tenderness Back: Absent: CVA tenderness (R), CVA tenderness (L), spinous process tenderness Neurological: Present: alert, oriented X3 Psychiatric: Present: normal affect, normal mood Skin: Present: warm, dry Course Vital Signs Temperature 98.8 F 08/08/18 16:40 Pulse Rate 80 08/08/18 16:40 Respiratory Rate 26 H 08/08/18 16:40 Pulse Oximetry (%) 83 L 08/08/18 16:40 Temperature 97.7 F 08/09/18 02:38 Pulse Rate 87 08/09/18 07:30 Respiratory Rate 20 08/09/18 07:30 Blood Pressure 136/70 08/09/18 07:07 Pulse Oximetry (%) 97 08/09/18 07:30 Shortness of Breath/Dyspnea - [facility] Narrative Medical decision making narrative: 5:00 PM Shortness of breath, probable COPD exacerbation. See labs and x-ray ordered. - Lab Data Lab results reviewed: Yes I reviewed the patient's lab results. Result diagrams: 08/09/18 04:32 08/09/18 04:32 Lab Results 08/08/18 08/08/18 08/08/18 Range/Units 17:08 17:08 17:08 WBC 10.6 (4.5-11.0) K/mcL RBC 3.98 L (4.00-5.20) M/mcL Hgb 10.5 L (12.0-15.0) g/dL Hct 33.2 L (36.0-48.0) % MCV 83.5 (80.0-100.0) fL MCH 26.3 (26.0-34.0) pg MCHC 31.5 (31.0-36.0) g/dL RDW 17.6 H (11.5-14.5) % Plt Count 308 (140-440) K/mcL MPV 8.4 (7.4-10.4) fL Total Counted 102 Seg Neutrophils % 67 (38-78) % Band Neutrophils % Not Reportable Lymphocytes % 25 (15-49) % Monocytes % (Manual) 4 (1-12) % Eosinophils % (Manual) 2 (0-7) % Basophils % (Manual) 1 (0-2) % Reactive Lymphocytes 2 (0-2) % Platelet Estimate Normal (NORMAL) RBC Morphology Abnormal (NORMAL) Polychromasia Rare A (NONE SEEN) Anisocytosis 1+ A (NONE SEEN) Sodium 136 (133-145) mmol/L Potassium 4.1 (3.3-5.1) mmol/L Chloride 97 (96-108) mmol/L Carbon Dioxide 23 (22-30) mmol/L Anion Gap 16.0 (8-16) BUN 15 (8-23) mg/dl Creatinine 0.6 (0.6-1.1) mg/dl GFR Calculation 84 Glucose 75 (70-105) mg/dL Calcium 10.2 (8.6-10.4) mg/dl Total Bilirubin 0.2 (0.0-1.0) mg/dL AST 22 (0-37) U/l ALT 15 (0-40) U/l Alkaline Phosphatase 62 (39-117) U/L Total Protein 8.4 (5.9-8.4) gm/dL Albumin 4.3 (3.2-5.2) gm/dL Globulin 4.1 H (2.2-3.7) gm/dL Albumin/Globulin Ratio 1.0 (1.0-2.3) Procalcitonin < 0.05 (<0.10) ng/mL Urine Color Urine Appearance Urine pH (5.0-9.0) Ur Specific [place] (1.000-1.035) Urine Protein (NEG) mg/dL Urine Glucose (UA) (NEG) mg/dL Urine Ketones (NEG) mg/dL Urine Occult Blood (<0.03) mg/dL Urine Nitrate (NEG) Urine Bilirubin (NEG) mg/dL Urine Urobilinogen (NEG) mg/dL Ur Leukocyte Esterase (NEG) /uL 08/08/18 Range/Units 18:10 WBC (4.5-11.0) K/mcL RBC (4.00-5.20) M/mcL Hgb (12.0-15.0) g/dL Hct (36.0-48.0) % MCV (80.0-100.0) fL MCH (26.0-34.0) pg MCHC (31.0-36.0) g/dL RDW (11.5-14.5) % Plt Count (140-440) K/mcL MPV (7.4-10.4) fL Total Counted Seg Neutrophils % (38-78) % Band Neutrophils % Lymphocytes % (15-49) % Monocytes % (Manual) (1-12) % Eosinophils % (Manual) (0-7) % Basophils % (Manual) (0-2) % Reactive Lymphocytes (0-2) % Platelet Estimate (NORMAL) RBC Morphology (NORMAL) Polychromasia (NONE SEEN) Anisocytosis (NONE SEEN) Sodium (133-145) mmol/L Potassium (3.3-5.1) mmol/L Chloride (96-108) mmol/L Carbon Dioxide (22-30) mmol/L Anion Gap (8-16) BUN (8-23) mg/dl Creatinine (0.6-1.1) mg/dl GFR Calculation Glucose (70-105) mg/dL Calcium (8.6-10.4) mg/dl Total Bilirubin (0.0-1.0) mg/dL AST (0-37) U/l ALT (0-40) U/l Alkaline Phosphatase (39-117) U/L Total Protein (5.9-8.4) gm/dL Albumin (3.2-5.2) gm/dL Globulin (2.2-3.7) gm/dL Albumin/Globulin Ratio (1.0-2.3) Procalcitonin (<0.10) ng/mL Urine Color [place] Urine Appearance Clear Urine pH 5.0 (5.0-9.0) Ur Specific [place] 1.029 (1.000-1.035) Urine Protein Neg (NEG) mg/dL Urine Glucose (UA) Negative (NEG) mg/dL Urine Ketones Neg (NEG) mg/dL Urine Occult Blood Neg (<0.03) mg/dL Urine Nitrate Neg (NEG) Urine Bilirubin Neg (NEG) mg/dL Urine Urobilinogen Neg (NEG) mg/dL Ur Leukocyte Esterase Neg (NEG) /uL - Radiology Data Radiology results reviewed: Yes I reviewed the patient's radiology results. - EKG Data EKG results narrative: No acute coronary syndrome findings. This ECG will be read by a finishing machine operator automatic. Disposition Pt seen by CONTACT LENS TECHNICIAN/PA only: No Clinical Impression: COPD with exacerbation, Hypoxia, Elevated lactic acid level, Heart murmur, LVH (left ventricular hypertrophy) Anemia Qualifiers: Anemia type: unspecified type Qualified Code(s): D64.9 - Anemia, unspecified Summary: Patient continued to have hypoxia when taken off of oxygen and she does not have oxygen at home. This is a significant COPD exacerbation and may need additional treatment to help break it over to arrange for chronic oxygen at home. I discussed her care with hospitalist, Dr. Mensah, who accepted care. Disposition: Xfer As Inpt ([facility]) Condition: Fair
[2018-08-08] MEDS ORDERED: IPRATROPIUM/ALBUTEROL 3 ML AMPUL.NEB NEB ONE ×2 (17:01→19:31)
[2018-08-08] MEDS ORDERED: 0.9 % SODIUM CHLORIDE 1,000 ML IV ONE (17:02)
--- NOTE | 2018-08-08 17:11 | XRay Report ---
INDICATION: History of pulmonary fibrosis. Dyspnea. TECHNIQUE: AP chest x-ray,portable upright COMPARISON: Previous chest x-rays dated 08/06/2018, 03/30/2018, 02/27/2018. FINDINGS:Elevated right hemidiaphragm, unchanged. There is interposed colon. Diffuse pulmonary parenchymal abnormality consistent with the supplied diagnosis of pulmonary fibrosis. When allowances are made for differences in technique there is been no definite interval change. No new focal pulmonary parenchymal infiltrate or mass. No pleural fluid. IMPRESSION: 1. Elevated right hemidiaphragm, unchanged 2. Findings consistent with the supplied diagnosis of pulmonary fibrosis 3. No acute parenchymal infiltrate. No definite interval change Interpreted and Authenticated by: Fish Vieira 08/08/18
[2018-08-08 17:46] LABS: Mean Cell Volume 83.5 fL (80.0-100.0); Mean Corpuscular HGB Conc 31.5 g/dL (31.0-36.0); Platelet Count 308 K/mcL (140-440); RBC 3.98 M/mcL (4.00-5.20); Red Cell Distribution Width 17.6 % (11.5-14.5)
[2018-08-08 18:04] LABS: ALT/SGPT 15 U/l (0-40); Albumin 4.3 gm/dL (3.2-5.2); Alkaline Phosphatase 62 U/L (39-117); Blood Urea Nitrogen 15 mg/dl (8-23)
[2018-08-08 18:45] LABS: Anisocytosis 1+ (NONE SEEN); Basophils % (Manual) 1 % (0-2); Eosinophils % (Manual) 2 % (0-7); Lymphocytes % 25 % (15-49); Monocytes % (Manual) 4 % (1-12); Platelet Estimate NORMAL (NORMAL); RBC Morphology ABNORMAL (NORMAL); Segmented Neutrophils % 67 % (38-78)
[2018-08-08] MEDS ORDERED: methylPREDNISolone SOD SUCC 125 MG/2 ML VIAL IV ONE (19:29)
--- NOTE | 2018-08-08 21:37 | Internal Med History&Physical ---
Medical - H&P: [facility] Patient information: Note initiated : 08/08/18 at 9:34 pm Service Date, if different from initiated Date: [] Patient: Linda Cooper a 83 y/o F admitted on for shortness of breath x 1 day. Chief Complaint: [] History of present illness: Ms. Cooper is a 83 year old F Who presents with shortness of breath productive cough wheezing for the past couple days. She does have shortness of breath at baseline from COPD and pulmonary fibrosis but this is been much worse. She had room air saturations of 83%. She does not have oxygen at home. Recent diagnosed with UTI and placed on Macrobid. In the ED chest x-ray showed pulmonary fibrosis no consolidation she was very tight and wheezy felt to have COPD exacerbation she was hypoxic and had a elevated lactate. No white blood cell count or fevers. Although she is felt feverish. She has dysuria from her UTI for which she is been on antibiotics for 2 days. Review of Systems: Pertinent positives as above. Denies headache/nausea/vomiting/chest or abdominal pain/diarrhea. Remaining 10 point review of systems reviewed negative Medical - H&P: [facility] Medical history: Medical History (Last Updated 08/08/18 @ 17:33 by Alfredo Mendez DO) Allergy to multiple antibiotics (Chronic) AMY positive (Chronic) History of recurrent UTI (urinary tract infection) (Chronic) Idiopathic pulmonary fibrosis (Chronic) COPD (chronic obstructive pulmonary disease) (Chronic) History of tobacco use (Chronic) Asthma (Chronic) Hyperlipidemia (Chronic) GERD (gastroesophageal reflux disease) (Chronic) Panic disorder (Chronic) Restless leg (Chronic) Anxiety (Chronic) Major depressive disorder (Chronic) Osteoarthritis (Chronic) Heel spur (Chronic) Plantar fasciitis (Chronic) Acute exacerbation of chronic obstructive airways disease (Resolved) Bladder infection (Resolved) Bronchitis (Resolved) Bronchitis (Resolved) COPD exacerbation (Resolved) COPD exacerbation (Resolved) Community acquired bacterial pneumonia (Resolved) Constipation (Resolved) Cystitis (Resolved) Fall (Resolved ~02/2018) Left lower lobe pneumonia (Resolved) Pneumonia (Resolved) Right ankle tendonitis (Resolved) UTI (urinary tract infection) (Resolved) Urinary tract infection (Resolved) Urinary tract infection (Resolved) Urinary tract infection without complication (Resolved) Eustachian tube disorder (Inactive) Pulmonary fibrosis (Inactive) Past Surgical History (Last Updated 08/08/18 @ 16:56 by Alfredo Mendez DO) History of surgery (Acute) S/P hernia surgery (Acute) S/P hysterectomy (Acute) S/P sclerotherapy of varicose veins (Acute) S/P tonsillectomy (Acute) History of herniorrhaphy (Chronic) H/O total hip arthroplasty (Inactive) Family History (Last Reviewed 06/27/18 @ 17:07 by Danyel Bui MD) Other Cancer Diabetes Hypertension Social History (Last Updated 06/27/18 @ 17:16 by Danyel Bui MD) Quit smoking 35 years ago, does not use alcohol, uses a cane, lives by herself Medical - H&P: Meds Home Medications Medication Instructions Recorded Confirmed Type Mometasone/Formoterol [Dulera 100 2 puff IH BID 12/26/14 08/06/18 History Mcg/5 Mcg Inhaler] Omeprazole [Prilosec] 40 mg PO ACB 12/26/14 08/06/18 History Pravastatin [Pravachol] 20 mg PO HS 12/26/14 08/06/18 History Tiotropium [place] [Spiriva] 18 mcg INH DAILY 12/26/14 08/06/18 History traZODone HCL [Desyrel] 75 mg PO HS 12/26/14 08/06/18 History multivitamin capsule 1 tab-cap PO QDAY 12/07/16 08/06/18 History losartan 50 mg-hydrochlorothiazide 1 tab PO QDAY 07/20/17 08/06/18 History 12.5 mg tablet mupirocin 2 % topical ointment 1 applic TOPICAL BID #30 g 07/27/17 08/06/18 Rx ipratropium-albuterol 0.5 mg-3 3 ml INHALATION BID ml 05/31/18 08/06/18 History mg(2.5 mg base)/3 mL nebulization soln Nitrofurantoin Macrocrystal 100 mg PO BID 7 Days #14 cap 08/06/18 Rx [Nitrofurantoin] Allergies Allergy/AdvReac Type Severity Reaction Status Date / Time cephalexin Allergy Mild Itching Verified 08/08/18 16:44 doxycycline Allergy Mild Itching Verified 08/08/18 16:44 levofloxacin Allergy Mild Itching Verified 08/08/18 16:44 Sulfa (Sulfonamide Allergy Mild Itching Verified 08/08/18 16:44 Antibiotics) atorvastatin [From Lipitor] Allergy Unknown myalgia Verified 08/08/18 16:44 Cephalosporins Allergy Unknown Unknown Verified 08/08/18 16:44 ezetimibe [From Zetia] Allergy Unknown myalgia Verified 08/08/18 16:44 methenamine Allergy Unknown Unknown Verified 08/08/18 16:44 Medical - H&P: Exam - Constitutional Vitals: Temp Pulse Resp BP Pulse Ox 98.8 F 82 23 H 136/60 96 08/08/18 16:40 08/08/18 21:16 08/08/18 21:01 08/08/18 21:16 08/08/18 21:16 Exam: General: Alert, Awake, No acute Distress Eyes/N/T: EOMI, PEERL, DMM Head/Neck: neck supple, normocephalic atraumatic CV: RRR, No murmurs, normal s1/s2 Pulm: Severely diminished breath sounds bilaterally, wheezing bilaterally Abd: soft, nontender, +BS x4 Ext: no clubbing/cyanosis/edema Neuro: Alert, no focal deficits, moves all extremities, CN 2-12 grossly intact, symmetrical strength b/l upper/lower, sensations intact b/l upper/lower Skin: warm/dry Medical - H&P: Reslt - Labs CBC & Chem 7: 08/08/18 17:08 08/08/18 17:08 Labs: Short CBC 08/08/18 Range/Units 17:08 WBC 10.6 (4.5-11.0) K/mcL Hgb 10.5 L (12.0-15.0) g/dL Hct 33.2 L (36.0-48.0) % Plt Count 308 (140-440) K/mcL BMP 08/08/18 17:08 Sodium 136 Potassium 4.1 Chloride 97 Carbon Dioxide 23 BUN 15 Creatinine 0.6 Glucose 75 Calcium 10.2 Liver Function 08/08/18 Range/Units 17:08 Total Bilirubin 0.2 (0.0-1.0) mg/dL AST 22 (0-37) U/l ALT 15 (0-40) U/l Alkaline Phosphatase 62 (39-117) U/L Albumin 4.3 (3.2-5.2) gm/dL - Impressions Chest x-ray with pulmonary fibrosis no consolidation Medical - H&P: A/P - Narrative A/P Narrative: A: *AECOPD (not on home oxygen, just inhalers): *Acute on chronic hypoxic respiratory failure: Secondary to above -83% on room air initially *Pulmonary fibrosis: Significant contributor to above *Lactic acidosis: Secondary to hypoxia *UTI: *Generalized weakness/deconditioning *Anemia, chronic *GERD: *HTN: P: -Steroids (wean) -Nebs/IS/Acapella/RT -Antibiotics, pending UC -Respiratory panel pending -Patient may need home oxygen, will have RT evaluate prior to discharge - - -pt/ot -ppx: lovenox No code
[2018-08-08] MEDS ORDERED: DEXTROSE 31 GM ORAL.SUSP PO PRN (23:10)
[2018-08-08] MEDS ORDERED: ACETAMINOPHEN 325 MG TABLET PO PRN (23:10)
[2018-08-08] MEDS ORDERED: cefTRIAXone 1 GM in DEXTROSE 5% IN WATER 50 ML IV SCH (23:10)
[2018-08-08] MEDS ORDERED: DEXTROSE 50% 50 ML VIAL IV PRN (23:10)
[2018-08-08] MEDS ORDERED: cefTRIAXone 1 GM VIAL ONE (23:49)
[2018-08-09] MEDS ORDERED: methylPREDNISolone SOD SUCC 125 MG/2 ML VIAL ONE ×2 (00:27→05:32)
[2018-08-09] MEDS ORDERED: MIRTAZAPINE 15 MG TABLET PO ONE (00:40)
[2018-08-09] MEDS: AZITHROMYCIN 500 MG in DEXTROSE 5% IN WATER 250 ML IV SCH ×2 (00:55→21:34)
[2018-08-09] MEDS: IPRATROPIUM/ALBUTEROL 3 ML AMPUL.NEB NEB SCH ×4 (01:07→19:32)
[2018-08-09] MEDS: methylPREDNISolone SOD SUCC 40 MG/ML VIAL IV SCH ×4 (01:07→21:31)
[2018-08-09] MEDS ORDERED: PRAMIPEXOLE 0.25 MG TABLET PO ONE (01:40)
[2018-08-09 02:58] LABS: Appearance,Urine CLEAR; Bilirubin,Urine NEG (NEG); Color,Urine AMBER; Glucose,Urine (UA) NEGATIVE (NEG); Leukocyte Esterase,Urine NEG /uL (NEG); Protein,Urine NEG (NEG); Specific Gravity,Urine 1.029 (1.000-1.035); Urine Blood NEG mg/dL (<0.03); Urobilinogen,Urine NEG (NEG)
[2018-08-09] MEDS: 0.9 % SODIUM CHLORIDE 10 ML SYRINGE IV SCH ×4 (05:42→23:18)
[2018-08-09 06:15] LABS: Basophils # (Auto) 0 K/mcL (0.0-0.3); Basophils % (Auto) 0 % (0.0-2.0); Eosinophils # (Auto) 0 K/mcL (0.0-0.7); Eosinophils % (Auto) 0 % (0.0-7.0); Lymphocytes # (Auto) 0.6 K/mcL (1.5-4.8); Lymphocytes % (Auto) 12.2 % (15.5-49.0); Mean Cell Volume 83.9 fL (80.0-100.0); Mean Corpuscular HGB Conc 31.2 g/dL (31.0-36.0); Monocytes # (Auto) 0.1 K/mcL (0.1-0.9); Monocytes % (Auto) 1.8 % (1.0-12.0); Platelet Count 259 K/mcL (140-440); Red Cell Distribution Width 17.1 % (11.5-14.5)
[2018-08-09 06:19] LABS: ALT/SGPT 13 U/l (0-40); Albumin 3.8 gm/dL (3.2-5.2); Albumin/Globulin Ratio 1.1 (1.0-2.3); Alkaline Phosphatase 55 U/L (39-117); Bilirubin,Direct < 0.2 mg/dL (0.0-0.3); Blood Urea Nitrogen 13 mg/dl (8-23); Gamma Glutamyl Transpeptidase 33 U/L (5-36); Uric Acid 3.7 mg/dL (2.5-8.0)
--- NOTE | 2018-08-09 07:13 | Internal Med Progress Note ---
Medical - PN: Subj Patient information: Note initiated : 08/09/18 at 7:09 am Service Date, if different from initiated Date: [] Patient: Linda Cooper 83 y/o F admitted on 08/08/18 for shortness of breath x 1 day. Chief Complaint: [] Interval history: Ms. Cooper is a 83 year old F Who presents with shortness of breath productive cough wheezing for the past couple days. She does have shortness of breath at baseline from COPD and pulmonary fibrosis but this is been much worse. She had room air saturations of 83%. She does not have oxygen at home. Recent diagnosed with UTI and placed on Macrobid. In the ED chest x-ray showed pulmonary fibrosis no consolidation she was very tight and wheezy felt to have COPD exacerbation she was hypoxic and had a elevated lactate. No white blood cell count or fevers. Although she is felt feverish. She has dysuria from her UTI for which she is been on antibiotics for 2 days. 08/09 Difficulty sleeping because of cough. Breathing slowly improving but worse afte r coughing episodes. Had several episodes of diarrhea. Has some abdominal cramping. Still on several liters of oxygen Review of Systems: denies headache/fever/chills/nausea/vomiting/chest pain. Otherwise see above. - Constitutional Vitals: Vital Signs Temp Pulse Resp BP Pulse Ox 97.7 F 93 H 32 H 130/64 95 08/09/18 02:38 08/09/18 02:38 08/09/18 02:38 08/09/18 02:38 08/09/18 02:38 Period Temp Pulse Resp BP Sys/Smith Pulse Ox Last 24 Hr 97.7 F-98.8 F 66-93 13-32 120-165/54-81 83-100 Intake and Output 08/08/18 08/09/18 08/09/18 21:59 05:59 13:59 Intake Total 1000 300 Output Total 500 Balance 1000 -200 Weight 66.678 kg 65.771 kg Intake & Output: Intake & Output 08/08/18 08/09/18 08/09/18 21:59 05:59 13:59 Intake Total 1000 300 Output Total 500 Balance 1000 -200 Weight 66.678 kg 65.771 kg Intake: IV 1000 300 Sodium Chloride 0.9% 1,000 ml @ 1000 Wide Open IV BOLUS ONE Rx#: [id number] Zithromax 500 mg In Dextrose 5% 250 in Water 250 ml @ 250 mls/hr IV Q24H [facility] Rx#:[id number] Rocephin 1 gm In Dextrose 5% in 50 Water 50 ml @ 100 mls/hr IV Q24H [facility] Rx#:[id number] Output: Void Amount 500 Other: Urine Color Bright Yellow Urine Odor Normal Stool Size Smear Stool Color Green Black Stool Consistency Liquid # Voids 1 Exam: General: Alert, Awake, No acute Distress Eyes/N/T: EOMI, Head/Neck: neck supple, CV: RRR, No murmurs, Pulm: Much better aeration today, fine rales bilaterally Abd: soft, nontender, +BS x4 Ext: no clubbing/cyanosis/edema Neuro: Alert, no focal deficits, moves all extremities, Skin: warm/dry Medical - PN: Obj Da - Labs CBC & Chem 7: 08/09/18 04:32 08/09/18 04:32 Labs: Abnormal Lab Results 08/09/18 08/09/18 08/09/18 04:32 04:32 04:32 RBC 3.50 L Hgb 9.2 L Hct 29.4 L RDW 17.1 H Gran % 86.0 H Lymph % (Auto) 12.2 L Lymph # (Auto) 0.6 L Polychromasia Anisocytosis VBG Lactic Acid 2.7 H Glucose 154 H Globulin Triglycerides 167 H 08/08/18 08/08/18 08/08/18 Unknown 17:08 17:08 RBC 3.98 L Hgb 10.5 L Hct 33.2 L RDW 17.6 H Gran % Lymph % (Auto) Lymph # (Auto) Polychromasia Rare A Anisocytosis 1+ A VBG Lactic Acid 3.3 H Glucose Globulin 4.1 H Triglycerides Meds: Medications Acetaminophen (Tylenol) 650 mg PO Q6HP PRN PRN Reason: PAIN/FEVER > 101 Hydrocodone Bitart/Acetaminophen ([place] 7.5/325mg) 1 tab PO Q6HP PRN PRN Reason: Pain Albuterol/Ipratropium (Duoneb) 3 ml NEB Q6HRT [facility] Last Admin: 08/09/18 01:07 Dose: 3 ml Documented by: Budesonide (Pulmicort) 0.5 mg NEB Q12 [facility] Ceftriaxone Sodium (Rocephin) 1 gm IV Q24H [facility] Dextrose (Dextrose 50%) 0 ml IV UD PRN PRN Reason: Hypoglycemia Diagnostic Test (Pha) (Accu-Chek) 1 each FS ACHS [facility] Last Admin: 08/09/18 07:05 Dose: 1 each Documented by: Enoxaparin Sodium (Lovenox) 40 mg SQ DAILY [facility] Famotidine (Pepcid) 20 mg PO BID [facility] Glucose (Insta-Glucose) 15 gm PO PRN PRN PRN Reason: Hypoglycemia HCTZ/Losartan Potassium (Hyzaar 50/12.5) 1 tab PO QDAY [facility] Azithromycin 500 mg/ Dextrose 250 mls @ 250 mls/hr IV Q24H [facility]; Protocol Stop: 08/11/18 00:09 Last Infusion: 08/09/18 02:00 Dose: Infused Documented by: Insulin Human Lispro (Humalog) 0 unit SQ [facility]; Protocol Methylprednisolone Sodium Succinate (Solu-Medrol) 40 mg IV Q6 [facility] Last Admin: 08/09/18 05:43 Dose: Not Given Documented by: Mirtazapine (Remeron) 7.5 mg PO HS ONE Stop: 08/09/18 00:41 Non-Formulary Medication (Mirtazapine) 7.5 mg PO HS [facility] Non-Formulary Medication (Mometasone/Formoterol [Dulera 100 Mcg/5 Mcg Inhaler]) 2 puff IH BID [facility] Pramipexole Dihydrochloride (Mirapex) 0.25 mg PO HS ONE Stop: 08/09/18 01:41 Pramipexole Dihydrochloride (Mirapex) 0.25 mg PO HS [facility] Pravastatin Sodium (Pravachol) 20 mg PO HS [facility] Sodium Chloride (Saline Flush) 10 ml IV Q8 [facility] Last Admin: 08/09/18 05:42 Dose: 10 ml Documented by: Tiotropium [place] (Spiriva) 18 mcg INH DAILY [facility] Trazodone HCl (Desyrel) 75 mg PO HS [facility] Medical - PN: A/P - Time Spent With Patient Total time spent is greater than 50% in coordination of care (as documented) at patient's floor/unit and/or counseling patient: - Narrative A/P Narrative: A: *AECOPD (not on home oxygen, just inhalers): -resp viral panel neg *Acute on chronic hypoxic respiratory failure: Secondary to above -83% on room air initially *Pulmonary fibrosis: Significant contributor to above *Lactic acidosis: Secondary to hypoxia *recent UTI: started on macrobid several days ago *Generalized weakness/deconditioning *Anemia, chronic *GERD: *HTN: P: -Steroids (wean) -wean O2 supp -Nebs/IS/Acapella/RT -Antibiotics, pending UC -Patient may need home oxygen, will have RT evaluate prior to discharge - -pt/ot -ppx: lovenox No code Medical - PN: Qual - Stroke Symptom Onset Unknown: No - VTE Deep Vein Thrombosis/Pulmonary Embolism Present on Admission: No
[2018-08-09] MEDS: INSULIN LISPRO 1 UNIT/0.01 ML UNIT SQ SCH ×4 (07:27→21:53)
[2018-08-09] MEDS: BUDESONIDE 0.5 MG/2 ML AMPUL.NEB NEB SCH ×2 (07:34→19:32)
[2018-08-09] MEDS ORDERED: LOSARTAN/HCTZ 50/12.5 TABLET PO SCH (09:00)
[2018-08-09] MEDS: HYDROCHLOROTHIAZIDE 12.5 MG CAPSULE PO SCH (09:32)
[2018-08-09] MEDS: FAMOTIDINE 20 MG TABLET PO SCH ×2 (09:32→21:24)
[2018-08-09] MEDS: LOSARTAN 50 MG TABLET PO SCH (09:33)
[2018-08-09] MEDS: ENOXAPARIN 40 MG/0.4 ML SYRINGE SQ SCH (09:33)
[2018-08-09] MEDS: NITROFURANTOIN SR 100 MG CAPSULE PO SCH ×2 (09:33→21:28)
[2018-08-09] MEDS: TIOTROPIUM BROMIDE 18 MCG INHALANT INH SCH (09:34)
[2018-08-09] MEDS ORDERED: 0.9 % SODIUM CHLORIDE 500 ML IV ONE (11:47)
[2018-08-09] MEDS: BENZONATATE 100 MG CAPSULE PO PRN ×2 (12:23→21:27)
[2018-08-09] MEDS: cefTRIAXone 1 GM VIAL IV SCH (13:53)
[2018-08-09] MEDS ORDERED: LOPERAMIDE 2 MG CAPSULE PO PRN (17:43)
[2018-08-09] MEDS ORDERED: diphenhydrAMINE 25 MG CAPSULE PO ONE (21:00)
[2018-08-09] MEDS ORDERED: PRAVASTATIN 20 MG TABLET PO SCH (21:00)
[2018-08-09] MEDS: MIRTAZAPINE 15 MG TABLET PO SCH (21:24)
[2018-08-09] MEDS: traZODone HCL 50 MG TABLET PO SCH (21:26)
[2018-08-09] MEDS: PRAMIPEXOLE 0.25 MG TABLET PO SCH (21:27)
[2018-08-09] MEDS: SIMVASTATIN 10 MG TABLET PO SCH (21:27)
[2018-08-09] MEDS: HYDROCODONE/APAP 7.5/325MG TABLET PO PRN (23:27)
[2018-08-10] MEDS: IPRATROPIUM/ALBUTEROL 3 ML AMPUL.NEB NEB SCH ×2 (01:10→16:49)
[2018-08-10] MEDS: methylPREDNISolone SOD SUCC 40 MG/ML VIAL IV SCH (05:54)
[2018-08-10] MEDS: 0.9 % SODIUM CHLORIDE 10 ML SYRINGE IV SCH ×3 (05:59→21:13)
--- NOTE | 2018-08-10 07:05 | Internal Med Progress Note ---
Medical - PN: Subj Patient information: Note initiated : 08/10/18 at 6:56 am Service Date, if different from initiated Date: [] Patient: Linda Cooper 83 y/o F admitted on 08/08/18 for shortness of breath x 1 day. Chief Complaint: [] Interval history: Ms. Cooper is a 83 year old F Who presents with shortness of breath productive cough wheezing for the past couple days. She does have shortness of breath at baseline from COPD and pulmonary fibrosis but this is been much worse. She had room air saturations of 83%. She does not have oxygen at home. Recent diagnosed with UTI and placed on Macrobid. In the ED chest x-ray showed pulmonary fibrosis no consolidation she was very tight and wheezy felt to have COPD exacerbation she was hypoxic and had a elevated lactate. No white blood cell count or fevers. Although she is felt feverish. She has dysuria from her UTI for which she is been on antibiotics for 2 days. 08/09 Difficulty sleeping because of cough. Breathing slowly improving but worse afte r coughing episodes. Had several episodes of diarrhea. Has some abdominal cramping. Still on several liters of oxygen 08/10 Coughing mildly improved. Shortness of breath slowly improving, more noticeable with exertion. Overall feels better. Frazer like she slept better. Has a bit of a stomachache from coughing. Review of Systems: denies headache/fever/chills/nausea/vomiting/chest pain. Otherwise see above. - Constitutional Vitals: Vital Signs Temp Pulse Resp BP Pulse Ox 98.0 F 88 24 H 120/62 96 08/10/18 04:02 08/10/18 04:02 08/10/18 04:02 08/10/18 04:02 08/10/18 04:02 Period Temp Pulse Resp BP Sys/Smith Pulse Ox Last 24 Hr 97.2 F-98.7 F 71-95 16-24 118-158/56-74 94-98 Intake and Output 08/09/18 08/10/18 08/10/18 21:59 05:59 13:59 Intake Total 1660 400 Output Total 251 401 Balance 1409 -1 Weight 65.771 kg Intake & Output: Intake & Output 08/09/18 08/10/18 08/10/18 21:59 05:59 13:59 Intake Total 1660 400 Output Total 251 401 Balance 1409 -1 Weight 65.771 kg Intake: IV 500 Oral 1160 400 Output: Void Amount 250 400 # of times incontinent of urine 1 1 Other: Meal Breakfast Percent of Meal Consumed 100% Urine Appearance Clear Urine Color Light Tamika Stool Size Small Small Stool Color Green Stool Consistency Liquid Soft # Voids 1 1 # Bowel Movements 1 # of times incontinent of 1 Bowels Exam: General: Alert, Awake, No acute Distress Eyes/N/T: EOMI, Head/Neck: neck supple, CV: RRR, 2/6 SM Pulm: improved aeration, fine rales bilaterally, mild wheeze Abd: soft, nontender, +BS x4 Ext: no clubbing/cyanosis, trace b/l LE edema. cap refill <2sec, 2+ peripheral pulses Neuro: Alert, no focal deficits, moves all extremities, Skin: warm/dry Medical - PN: Obj Da - Labs CBC & Chem 7: 08/09/18 04:32 08/09/18 04:32 Labs: Abnormal Lab Results 08/10/18 08/09/18 08/09/18 04:18 16:33 10:25 RBC Hgb Hct RDW Gran % Lymph % (Auto) Lymph # (Auto) Polychromasia Anisocytosis VBG Lactic Acid 4.4 H* 3.4 H 4.0 H* Glucose Globulin Triglycerides 08/09/18 08/09/18 08/09/18 04:32 04:32 04:32 RBC 3.50 L Hgb 9.2 L Hct 29.4 L RDW 17.1 H Gran % 86.0 H Lymph % (Auto) 12.2 L Lymph # (Auto) 0.6 L Polychromasia Anisocytosis VBG Lactic Acid 2.7 H Glucose 154 H Globulin Triglycerides 167 H 08/08/18 08/08/18 08/08/18 Unknown 17:08 17:08 RBC 3.98 L Hgb 10.5 L Hct 33.2 L RDW 17.6 H Gran % Lymph % (Auto) Lymph # (Auto) Polychromasia Rare A Anisocytosis 1+ A VBG Lactic Acid 3.3 H Glucose Globulin 4.1 H Triglycerides Meds: Medications Acetaminophen (Tylenol) 650 mg PO Q6HP PRN PRN Reason: PAIN/FEVER > 101 Hydrocodone Bitart/Acetaminophen ([place] 7.5/325mg) 1 tab PO Q6HP PRN PRN Reason: Pain Last Admin: 08/09/18 23:27 Dose: 1 tab Documented by: Albuterol/Ipratropium (Duoneb) 3 ml NEB Q6HRT [facility] Last Admin: 08/10/18 01:10 Dose: 3 ml Documented by: Benzonatate (Tessalon) 200 mg PO TIDP PRN PRN Reason: Cough Last Admin: 08/09/18 21:27 Dose: 200 mg Documented by: Budesonide (Pulmicort) 0.5 mg NEB Q12 [facility] Last Admin: 08/09/18 19:32 Dose: 0.5 mg Documented by: Ceftriaxone Sodium (Rocephin) 1 gm IV Q24H [facility] Last Admin: 08/09/18 13:53 Dose: 1 gm Documented by: Dextrose (Dextrose 50%) 0 ml IV UD PRN PRN Reason: Hypoglycemia Diagnostic Test (Pha) (Accu-Chek) 1 each FS [facility] Last Admin: 08/09/18 21:46 Dose: 1 each Documented by: Enoxaparin Sodium (Lovenox) 40 mg SQ DAILY [facility] Last Admin: 08/09/18 09:33 Dose: 40 mg Documented by: Famotidine (Pepcid) 20 mg PO BID [facility] Last Admin: 08/09/18 21:24 Dose: 20 mg Documented by: Glucose (Insta-Glucose) 15 gm PO PRN PRN PRN Reason: Hypoglycemia Hydrochlorothiazide ([place]) 12.5 mg PO DAILY [facility] Last Admin: 08/09/18 09:32 Dose: 12.5 mg Documented by: Azithromycin 500 mg/ Dextrose 250 mls @ 250 mls/hr IV Q24H [facility]; Protocol Stop: 08/11/18 00:09 Last Admin: 08/09/18 21:34 Dose: 250 mls/hr Documented by: Insulin Human Lispro (Humalog) 0 unit SQ [facility]; Protocol Last Admin: 08/09/18 21:53 Dose: 4 units Documented by: Loperamide HCl (Imodium) 2 mg PO PRN PRN PRN Reason: Diarrhea Losartan Potassium (Cozaar) 50 mg PO DAILY [facility] Last Admin: 08/09/18 09:33 Dose: 50 mg Documented by: Methylprednisolone Sodium Succinate (Solu-Medrol) 40 mg IV Q8H [facility] Last Admin: 08/10/18 05:54 Dose: 40 mg Documented by: Mirtazapine (Remeron) 7.5 mg PO [facility] Last Admin: 08/09/18 21:24 Dose: 7.5 mg Documented by: Nitrofurantoin Macrocrystals (Macrobid) 100 mg PO BID [facility] Last Admin: 08/09/18 21:28 Dose: 100 mg Documented by: Dulera 100 Mcg/5 Mcg (Inhaler) 2 dose INH BID [facility] Last Admin: 08/09/18 21:54 Dose: Not Given Documented by: Pramipexole Dihydrochloride (Mirapex) 0.25 mg PO [facility] Last Admin: 08/09/18 21:27 Dose: 0.25 mg Documented by: Simvastatin (Zocor) 10 mg PO [facility] Last Admin: 08/09/18 21:27 Dose: 10 mg Documented by: Sodium Chloride (Saline Flush) 10 ml IV Q8 [facility] Last Admin: 08/10/18 05:59 Dose: 10 ml Documented by: Tiotropium [place] (Spiriva) 18 mcg INH DAILY [facility] Last Admin: 08/09/18 09:34 Dose: Not Given Documented by: Trazodone HCl (Desyrel) 75 mg PO [facility] Last Admin: 08/09/18 21:26 Dose: 75 mg Documented by: Medical - PN: A/P - Time Spent With Patient Total time spent is greater than 50% in coordination of care (as documented) at patient's floor/unit and/or counseling patient: - Narrative A/P Narrative: A: *AECOPD (not on home oxygen, just inhalers): -resp viral panel neg *Acute on chronic hypoxic respiratory failure: Secondary to above -83% on room air initially, now 1L min 90's *Pulmonary fibrosis: Significant contributor to above *Lactic acidosis: ?etiology, B-Agonists suspected vs ?simply hypoxia -pulse ox inaccurate. Does not appear hypoperfused. -perhaps the blood was drawn after one of her prolonged coughing fits *recent UTI: started on macrobid several days ago *Generalized weakness/deconditioning *Anemia, chronic *GERD: *HTN: P: -Steroids (wean) -wean O2 supp, -Nebs/IS/Acapella/RT -Patient may need home oxygen, will have RT evaluate prior to discharge -check ABG, hold B-agonists, recheck lactate -lashawn lundy -pt/ot -ppx: lovenox No code Medical - PN: Qual - Stroke Symptom Onset Unknown: No - VTE Deep Vein Thrombosis/Pulmonary Embolism Present on Admission: No
[2018-08-10] MEDS: NITROFURANTOIN SR 100 MG CAPSULE PO SCH (09:04)
[2018-08-10] MEDS: BENZONATATE 100 MG CAPSULE PO PRN ×2 (09:05→15:17)
[2018-08-10] MEDS: LOSARTAN 50 MG TABLET PO SCH (09:05)
[2018-08-10] MEDS: ENOXAPARIN 40 MG/0.4 ML SYRINGE SQ SCH (09:05)
[2018-08-10] MEDS: HYDROCHLOROTHIAZIDE 12.5 MG CAPSULE PO SCH (09:05)
[2018-08-10] MEDS: INSULIN LISPRO 1 UNIT/0.01 ML UNIT SQ SCH ×4 (09:06→21:26)
[2018-08-10] MEDS ORDERED: diphenhydrAMINE 25 MG CAPSULE PO PRN (09:10)
[2018-08-10] MEDS: cefTRIAXone 1 GM VIAL IV SCH (09:12)
[2018-08-10] MEDS: FAMOTIDINE 20 MG TABLET PO SCH ×2 (09:12→21:13)
[2018-08-10] MEDS: BUDESONIDE 0.5 MG/2 ML AMPUL.NEB NEB SCH (09:21)
[2018-08-10] MEDS: TIOTROPIUM BROMIDE 18 MCG INHALANT INH SCH (11:26)
[2018-08-10] MEDS ORDERED: WATER IV ONE (13:00)
[2018-08-10] MEDS ORDERED: DEXTROSE 5% IV ONE (13:00)
[2018-08-10] MEDS ORDERED: AZITHROMYCIN IV ONE (13:00)
[2018-08-10] MEDS ORDERED: SODIUM BICARBONATE 650 MG TABLET PO ONE ×2 (15:02→19:46)
[2018-08-10] MEDS ORDERED: LACTATED RINGERS 1,000 ML IV SCH (15:15)
[2018-08-10] MEDS: guaiFENesin/CODEINE 10 ML UDC PO PRN ×2 (17:29→21:17)
[2018-08-10] MEDS: predniSONE 20 MG TABLET PO SCH (17:30)
[2018-08-10 19:04] LABS: Blood Urea Nitrogen 23 mg/dl (8-23)
[2018-08-10] MEDS: HYDROCODONE/APAP 7.5/325MG TABLET PO PRN (19:53)
[2018-08-10] MEDS: traZODone HCL 50 MG TABLET PO SCH (21:13)
[2018-08-10] MEDS: PRAMIPEXOLE 0.25 MG TABLET PO SCH (21:14)
[2018-08-10] MEDS ORDERED: IOPAMIDOL 100 ML BOTTLE IV ONE (21:14)
[2018-08-10] MEDS: SIMVASTATIN 10 MG TABLET PO SCH (21:14)
[2018-08-10] MEDS: MIRTAZAPINE 15 MG TABLET PO SCH (21:14)
[2018-08-11] MEDS: guaiFENesin/CODEINE 10 ML UDC PO PRN ×4 (02:06→16:21)
--- NOTE | 2018-08-11 06:03 | Cat Scan Report ---
CLINICAL INFORMATION: Sepsis. Possible occult infection TECHNIQUE: Axial images through the chest, abdomen, pelvis. 60 mL intravenous contrast material injected. Oral contrast material was not given. Sagittal and coronal reformatted images. COMPARISON: Chest CT scan dated 04/21/2018. Chest x-ray dated 08/08/2018 FINDINGS: CHEST: Patient has a history of pulmonary fibrosis. Findings are unchanged since 04/21/2018. There is honeycombing. There is thickening of the intralobular septa and interlobular septa. There is mild traction bronchiectasis at both lung bases. There is no focal pulmonary parenchymal consolidation. No definite superimposed bacterial pneumonia. No pathologic mediastinal or hilar lymphadenopathy. No axillary or supraclavicular adenopathy. There is no pleural effusion. Thoracic spine, ribs, sternum are negative. No evidence for discitis. No paraspinal soft tissue mass. ABDOMEN/PELVIS: Low density lesion in the right lobe of the liver is unchanged 04/21/2018. This is also stable since a chest CT scan dated 06/02/2013 and is considered benign. No new focal intrahepatic abnormality. No hepatic abscess. Gallbladder is present. No calcified gallstones. No dilated bile ducts. No splenomegaly. Normal enhancement splenic and portal veins. No pancreatic mass. No peripancreatic abnormality. Negative adrenal glands. Kidneys are negative. No hydronephrosis. No renal calculi. No perinephric abnormality. Negative abdominal aorta. There is calcification. No abdominal aortic aneurysm. There is streak artifact from bilateral hip replacement surgery. Uterus is either absent or atrophic. There is no adnexal mass. Colon is negative. No detectable mass. There is no diverticulitis. No appendicitis. The cecum is mildly distended and filled with stool. No mechanical small bowel obstruction. No intra-abdominal abscess. There is no free pelvic fluid. No pneumoperitoneum. There is no biliary or portal venous gas. No pneumatosis No lumbar compression fractures. No evidence for discitis. Sacrum and pelvis are negative. There is a small left inguinal hernia which contains only mesenteric fat. This examination was initially interpreted by [facility] IMPRESSION: 1. Abnormal lungs consistent with pulmonary fibrosis. Findings are unchanged since CT scan dated 04/21/2018. No acute pneumonia 2. Benign low density lesion in the liver is unchanged and consistent with cyst 3. No acute or focal abnormality. No intra-abdominal abscess. Interpreted and Authenticated by: Fish Vieira 08/11/18
[2018-08-11 06:57] LABS: Mean Corpuscular HGB Conc 31.4 g/dL (31.0-36.0); Platelet Count 286 K/mcL (140-440); Red Cell Distribution Width 17.8 % (11.5-14.5)
[2018-08-11] MEDS ORDERED: THIAMINE 100 MG in 0.9 % SODIUM CHLORIDE 50 ML IV ONE (07:04)
--- NOTE | 2018-08-11 07:05 | Internal Med Progress Note ---
Medical - PN: Subj Patient information: Note initiated : 08/11/18 at 7:00 am Service Date, if different from initiated Date: [] Patient: Linda Cooper 83 y/o F admitted on 08/08/18 for shortness of breath x 1 day. Chief Complaint: [] Interval history: Ms. Cooper is a 83 year old F Who presents with shortness of breath productive cough wheezing for the past couple days. She does have shortness of breath at baseline from COPD and pulmonary fibrosis but this is been much worse. She had room air saturations of 83%. She does not have oxygen at home. Recent diagnosed with UTI and placed on Macrobid. In the ED chest x-ray showed pulmonary fibrosis no consolidation she was very tight and wheezy felt to have COPD exacerbation she was hypoxic and had a elevated lactate. No white blood cell count or fevers. Although she is felt feverish. She has dysuria from her UTI for which she is been on antibiotics for 2 days. 08/09 Difficulty sleeping because of cough. Breathing slowly improving but worse afte r coughing episodes. Had several episodes of diarrhea. Has some abdominal cramping. Still on several liters of oxygen 08/10 Coughing mildly improved. Shortness of breath slowly improving, more noticeable with exertion. Overall feels better. Mcleod like she slept better. Has a bit of a stomachache from coughing. 08/11 Feeling better today slept well. The different cough medication seems to be helping her cough more. She does feel like his little more loose than previous. No chest pain. Some shortness of breath still but requiring no supplemental oxygen at this point. Review of Systems: denies headache/fever/chills/nausea/vomiting/chest pain. Otherwise see above. - Constitutional Vitals: Vital Signs Temp Pulse Resp BP Pulse Ox 97.8 F 63 22 138/56 93 08/11/18 03:16 08/11/18 03:16 08/11/18 03:16 08/11/18 03:16 08/11/18 03:16 Period Temp Pulse Resp BP Sys/Smith Pulse Ox Last 24 Hr 95.9 F-98.4 F 63-88 18-24 130-138/56-68 90-94 Intake and Output 08/10/18 08/11/18 08/11/18 21:59 05:59 13:59 Intake Total 950 200 Output Total 1 201 Balance 949 -1 Weight 64.864 kg Intake & Output: Intake & Output 08/10/18 08/11/18 08/11/18 21:59 05:59 13:59 Intake Total 950 200 Output Total 1 201 Balance 949 -1 Weight 64.864 kg Intake: IV 500 Zithromax 500 mg In Dextrose 5% 500 in Water 500 ml @ 250 mls/hr IV ONCE ONE Rx#:[id number] Oral 450 200 Output: Void Amount 200 # of times incontinent of urine 1 1 Other: Urine Appearance Clear Clear Urine Color Bright Yellow Straw Urine Odor Normal Exam: General: Alert, Awake, No acute Distress Eyes/N/T: EOMI, Head/Neck: neck supple, CV: RRR, 2/6 SM Pulm: improved aeration, no rales & No wheezing today Abd: soft, nontender, +BS x4 Ext: no clubbing/cyanosis, trace b/l LE edema. cap refill <2sec, 2+ peripheral pulses Neuro: Alert, no focal deficits, moves all extremities, Skin: warm/dry Medical - PN: Obj Da - Labs CBC & Chem 7: 08/11/18 04:23 08/11/18 04:23 Labs: Abnormal Lab Results 08/11/18 08/10/18 08/10/18 04:23 18:00 18:00 WBC 12.7 H RBC 3.60 L Hgb 9.5 L Hct 30.2 L RDW 17.8 H Gran % Lymph % (Auto) Lymph # (Auto) Polychromasia Anisocytosis VBG Lactic Acid 4.5 H* Glucose 124 H Globulin Triglycerides 08/10/18 08/10/18 08/09/18 13:57 04:18 16:33 WBC RBC Hgb Hct RDW Gran % Lymph % (Auto) Lymph # (Auto) Polychromasia Anisocytosis VBG Lactic Acid 4.4 H* 4.4 H* 3.4 H Glucose Globulin Triglycerides 08/09/18 08/09/18 08/09/18 10:25 04:32 04:32 WBC RBC Hgb Hct RDW Gran % Lymph % (Auto) Lymph # (Auto) Polychromasia Anisocytosis VBG Lactic Acid 4.0 H* 2.7 H Glucose 154 H Globulin Triglycerides 167 H 0308/08/18 08/08/18 04:32 Unknown 17:08 WBC RBC 3.50 L Hgb 9.2 L Hct 29.4 L RDW 17.1 H Gran % 86.0 H Lymph % (Auto) 12.2 L Lymph # (Auto) 0.6 L Polychromasia Anisocytosis VBG Lactic Acid 3.3 H Glucose Globulin 4.1 H Triglycerides 08/08/18 17:08 WBC RBC 3.98 L Hgb 10.5 L Hct 33.2 L RDW 17.6 H Gran % Lymph % (Auto) Lymph # (Auto) Polychromasia Rare A Anisocytosis 1+ A VBG Lactic Acid Glucose Globulin Triglycerides Meds: Medications Acetaminophen (Tylenol) 650 mg PO Q6HP PRN PRN Reason: PAIN/FEVER > 101 Hydrocodone Bitart/Acetaminophen ([place] 7.5/325mg) 1 tab PO Q6HP PRN PRN Reason: Pain Last Admin: 08/10/18 19:53 Dose: 1 tab Documented by: Benzonatate (Tessalon) 200 mg PO TIDP PRN PRN Reason: Cough Last Admin: 08/10/18 15:17 Dose: 200 mg Documented by: Ceftriaxone Sodium (Rocephin) 1 gm IV Q24H [facility] Last Admin: 08/10/18 09:12 Dose: 1 gm Documented by: Dextrose (Dextrose 50%) 0 ml IV UD PRN PRN Reason: Hypoglycemia Diagnostic Test (Pha) (Accu-Chek) 1 each FS [facility] Last Admin: 08/10/18 21:25 Dose: 1 each Documented by: Diphenhydramine HCl (Benadryl) 25 mg PO HSP PRN PRN Reason: Insomnia Last Admin: 08/10/18 21:13 Dose: 25 mg Documented by: Enoxaparin Sodium (Lovenox) 40 mg SQ DAILY [facility] Last Admin: 08/10/18 09:05 Dose: 40 mg Documented by: Famotidine (Pepcid) 20 mg PO BID [facility] Last Admin: 08/10/18 21:13 Dose: 20 mg Documented by: Glucose (Insta-Glucose) 15 gm PO PRN PRN PRN Reason: Hypoglycemia Guaifenesin/Codeine Phosphate (Robitussin Ac) 5 ml PO Q4HP PRN PRN Reason: Cough Last Admin: 08/11/18 02:06 Dose: 5 ml Documented by: Insulin Human Lispro (Humalog) 0 unit SQ [facility]; Protocol Last Admin: 08/10/18 21:26 Dose: Not Given Documented by: Loperamide HCl (Imodium) 2 mg PO PRN PRN PRN Reason: Diarrhea Last Admin: 08/10/18 09:06 Dose: 2 mg Documented by: Losartan Potassium (Cozaar) 50 mg PO DAILY [facility] Last Admin: 08/10/18 09:05 Dose: 50 mg Documented by: Mirtazapine (Remeron) 7.5 mg PO [facility] Last Admin: 08/10/18 21:14 Dose: 7.5 mg Documented by: Dulera 100 Mcg/5 Mcg (Inhaler) 2 dose INH BID [facility] Last Admin: 08/10/18 21:20 Dose: Not Given Documented by: Pramipexole Dihydrochloride (Mirapex) 0.25 mg PO [facility] Last Admin: 08/10/18 21:14 Dose: 0.25 mg Documented by: [facility]) [facility] Last Admin: 08/10/18 17:30 Dose: 40 mg Documented by: Simvastatin (Zocor) 10 mg PO [facility] Last Admin: 08/10/18 21:14 Dose: 10 mg Documented by: Sodium Chloride (Saline Flush) 10 ml IV Q8 [facility] Last Admin: 08/10/18 21:13 Dose: 10 ml Documented by: Tiotropium [place] (Spiriva) 18 mcg INH DAILY [facility] Last Admin: 08/10/18 11:26 Dose: Not Given Documented by: Trazodone HCl (Desyrel) 75 mg PO [facility] Last Admin: 08/10/18 21:13 Dose: 75 mg Documented by: Medical - PN: A/P - Time Spent With Patient Total time spent is greater than 50% in coordination of care (as documented) at patient's floor/unit and/or counseling patient: - Narrative A/P Narrative: A: *AECOPD (not on home oxygen, just inhalers): -resp viral panel neg *Acute on chronic hypoxic respiratory failure: Secondary to above -83% on room air initially, now room air *Pulmonary fibrosis: Significant contributor to above *Lactic acidosis: ?etiology, Not hypoxic/hypoperfused. B-Agonists stopped. No met acidosis. Liver/renal fxn good. No typical medications. No short bowel. -PCT low, leukocytosis steroid induced and mild - no bandemia, afebrile -CT c/a/p no malignancy/lymphoma findings. -resolved *recent UTI: started on macrobid several days ago *Generalized weakness/deconditioning *Anemia, chronic *GERD: *HTN: P: -Steroids (wean) -prn o2 -Nebs/IS/Acapella/RT -Patient may need home oxygen, will have RT evaluate prior to discharge - -pt/ot -ppx: lovenox No code Medical - PN: Qual - Stroke Symptom Onset Unknown: No - VTE Deep Vein Thrombosis/Pulmonary Embolism Present on Admission: No
[2018-08-11] MEDS: INSULIN LISPRO 1 UNIT/0.01 ML UNIT SQ SCH ×4 (07:13→21:02)
[2018-08-11] MEDS: 0.9 % SODIUM CHLORIDE 10 ML SYRINGE IV SCH ×3 (07:24→21:04)
[2018-08-11 07:31] LABS: ALT/SGPT 12 U/l (0-40); Albumin 3.8 gm/dL (3.2-5.2); Albumin/Globulin Ratio 1.1 (1.0-2.3); Alkaline Phosphatase 54 U/L (39-117); Bilirubin,Direct < 0.2 mg/dL (0.0-0.3); Blood Urea Nitrogen 22 mg/dl (8-23); Gamma Glutamyl Transpeptidase 31 U/L (5-36); Uric Acid 4.2 mg/dL (2.5-8.0)
[2018-08-11 07:39] LABS: Anisocytosis 1+ (NONE SEEN); Lymphocytes % 15 % (15-49); Monocytes % (Manual) 4 % (1-12); Platelet Estimate NORMAL (NORMAL); RBC Morphology ABNORM (NORMAL); Segmented Neutrophils % 81 % (38-78)
[2018-08-11] MEDS: cefTRIAXone 1 GM VIAL IV SCH (08:53)
[2018-08-11] MEDS: predniSONE 20 MG TABLET PO SCH ×2 (08:53→09:07)
[2018-08-11] MEDS: FAMOTIDINE 20 MG TABLET PO SCH ×2 (08:53→21:04)
[2018-08-11] MEDS: LOSARTAN 50 MG TABLET PO SCH (08:53)
[2018-08-11] MEDS: ENOXAPARIN 40 MG/0.4 ML SYRINGE SQ SCH (08:54)
[2018-08-11] MEDS: TIOTROPIUM BROMIDE 18 MCG INHALANT INH SCH (09:00)
[2018-08-11] MEDS: BENZONATATE 100 MG CAPSULE PO PRN ×2 (09:13→21:02)
[2018-08-11] MEDS ORDERED: IPRATROPIUM/ALBUTEROL 3 ML AMPUL.NEB NEB PRN (12:50)
--- NOTE | 2018-08-11 13:45 | Discharge Summary ---
Medical - DS: Prov Patient information: Note initiated : 08/11/18 at 1:42 pm Service Date, if different from initiated Date: [] Patient: Linda Cooper 83 y/o F admitted on 08/08/18 for shortness of breath x 1 day. Chief Complaint: [] Date of admission: 08/08/18 23:00 Discharge date: 08/12/18 Primary care physician: Jorge A Chin Consults: 08/08/18 Consult to Physician [CONS] Stat Comment: Consulting Provider: Adolfo Mensah Reason For Exam: Physician to Consult Medical - DS: Meds - Discharge Medications Prescriptions: predniSONE [Prednisone] 40 mg PO QAC #1 tab Active and Home Medications: Home Medications Mometasone/Formoterol [Dulera 100 Mcg/5 Mcg Inhaler] 2 puff IH BID 12/26/14 [History Confirmed 08/08/18 Last Taken 02/26/18 09:00] Omeprazole [Prilosec] 40 mg PO ACB 12/26/14 [History Confirmed 08/08/18 Last Taken 08/08/18] Pravastatin [Pravachol] 20 mg PO HS 12/26/14 [History Confirmed 08/08/18 Last Taken 12/30/14] Tiotropium [place] [Spiriva] 18 mcg INH DAILY 12/26/14 [History Confirmed 08/08/18 Last Taken 08/08/18] traZODone HCL [Desyrel] 75 mg PO HS 12/26/14 [History Confirmed 08/08/18 Last Taken 08/07/18] multivitamin capsule 1 tab-cap PO QDAY 12/07/16 [History Confirmed 08/08/18 Last Taken Unknown] losartan 50 mg-hydrochlorothiazide 12.5 mg tablet 1 tab PO QDAY 07/20/17 [History Confirmed 08/08/18 Last Taken Unknown] mupirocin 2 % topical ointment 1 applic TOPICAL BID #30 g 07/27/17 [Rx Confirmed 08/08/18 Last Taken Unknown] ipratropium-albuterol 0.5 mg-3 mg(2.5 mg base)/3 mL nebulization soln 3 ml INHALATION BID ml 05/31/18 [History Confirmed 08/08/18 Last Taken 08/08/18] Nitrofurantoin Macrocrystal [Nitrofurantoin] 100 mg PO BID 7 Days #14 cap 08/06/18 [Rx Confirmed 08/08/18 Last Taken 08/08/18] Hydrocodone/APAP 7.5/325Mg [[place] 7.5-325Mg] 1 tab PO Q6HP PRN 08/08/18 [History Confirmed 08/08/18 Last Taken 08/07/18] Mirtazapine 7.5 mg PO HS 08/08/18 [History Confirmed 08/08/18 Last Taken 08/07/18] Pramipexole [Mirapex] 0.25 mg PO HS 08/08/18 [History Confirmed 08/09/18 Last Taken 08/07/18] Medical - DS: Hosp Hospital course: MMs. Cooper is a 83 year old F Who presents with shortness of breath productive cough wheezing for the past couple days. She does have shortness of breath at baseline from COPD and pulmonary fibrosis but this is been much worse. She had room air saturations of 83%. She does not have oxygen at home. Recent diagnosed with UTI and placed on Macrobid. In the ED chest x-ray showed pulmonary fibrosis no consolidation she was very tight and wheezy felt to have COPD exacerbation she was hypoxic and had a elevated lactate. No white blood cell count or fevers. Although she is felt feverish. She has dysuria from her UTI for which she is been on antibiotics for 2 days. 08/09 Difficulty sleeping because of cough. Breathing slowly improving but worse after coughing episodes. Had several episodes of diarrhea. Has some abdominal cramping. Still on several liters of oxygen 08/10 Coughing mildly improved. Shortness of breath slowly improving, more noticeable with exertion. Overall feels better. [place] like she slept better. Has a bit of a stomachache from coughing. 08/11 Feeling better today slept well. The different cough medication seems to be helping her cough more. She does feel like his little more loose than previous. No chest pain. Some shortness of breath still but requiring no supplemental oxygen at this point. 08/12 No issues overnight, slept well doing well on room air at rest and will have respiratory therapy evaluate her while ambulating. Stable for discharge Discharge diagnosis: Acute exacerbation COPD hypoxic respiratory failure pulmonary fibrosis lact - Time Spent with Patient Total time spent providing and/or coordinating discharge services: Greater than 30 minutes Medical - DS: Exam - Constitutional Vitals: Vital Signs Temp Pulse Resp BP BP Pulse Ox 08/11/18 12:00 98.7 F 74 60 H 140/85 93 08/11/18 07:37 60 93 08/11/18 07:27 98.0 F 52 L 24 H 138/82 93 08/11/18 03:16 97.8 F 63 22 138/56 93 08/10/18 23:49 98.2 F 78 22 130/58 90 08/10/18 20:06 98.4 F 82 22 136/64 91 08/10/18 16:00 97.0 F 79 20 132/68 93 Intake and Output 08/10/18 08/11/18 08/11/18 21:59 05:59 13:59 Intake Total 950 200 551 Output Total 1 201 Balance 949 -1 551 Intake: IV 500 551 Zithromax 500 mg In Dextrose 5% 500 in Water 500 ml @ 250 mls/hr IV ONCE ONE Rx#:[id number] Oral 450 200 Output: Void Amount 200 # of times incontinent of urine 1 1 Other: Meal Breakfast Percent of Meal Consumed 100% Feeding Ability Independent Urine Appearance Clear Clear Urine Color Bright Yellow Straw Urine Odor Normal Weight 64.864 kg Medical - DS: Data Labs on day of discharge: Labs from last 24 hours 08/11/18 08/11/18 08/11/18 04:23 04:23 04:23 WBC 12.7 H RBC 3.60 L Hgb 9.5 L Hct 30.2 L MCV 84.0 MCH 26.3 MCHC 31.4 RDW 17.8 H Plt Count 286 MPV 8.6 Total Counted 100 Seg Neutrophils % 81 H Band Neutrophils % Not Reportable Lymphocytes % 15 Monocytes % (Manual) 4 WBC Morphology Abnorm A Hypersegmented Polys 1+ A Platelet Estimate Normal RBC Morphology Abnorm A Anisocytosis 1+ A VBG Lactic Acid 2.0 Sodium 135 Potassium 4.3 Chloride 98 Carbon Dioxide 25 Anion Gap 12.0 BUN 22 Creatinine 0.6 GFR Calculation 84 Glucose 115 H Uric Acid 4.2 Calcium 9.5 Phosphorus 3.3 Magnesium 2.2 Total Bilirubin 0.3 Direct Bilirubin < 0.2 GGT 31 AST 18 ALT 12 Alkaline Phosphatase 54 Lactate Dehydrogenase 256 H Total Protein 7.3 Albumin 3.8 Globulin 3.5 Albumin/Globulin Ratio 1.1 Triglycerides 143 Vitamin B1 08/10/18 08/10/18 08/10/18 18:00 18:00 18:00 WBC RBC Hgb Hct MCV MCH MCHC RDW Plt Count MPV Total Counted Seg Neutrophils % Band Neutrophils % Lymphocytes % Monocytes % (Manual) WBC Morphology Hypersegmented Polys Platelet Estimate RBC Morphology Anisocytosis VBG Lactic Acid 4.5 H* Sodium 135 Potassium 4.3 Chloride 97 Carbon Dioxide 24 Anion Gap 14.0 BUN 23 Creatinine 0.7 GFR Calculation 80 Glucose 124 H Uric Acid Calcium 9.8 Phosphorus Magnesium Total Bilirubin Direct Bilirubin GGT AST ALT Alkaline Phosphatase Lactate Dehydrogenase Total Protein Albumin Globulin Albumin/Globulin Ratio Triglycerides Vitamin B1 Pending 08/10/18 13:57 WBC RBC Hgb Hct MCV MCH MCHC RDW Plt Count MPV Total Counted Seg Neutrophils % Band Neutrophils % Lymphocytes % Monocytes % (Manual) WBC Morphology Hypersegmented Polys Platelet Estimate RBC Morphology Anisocytosis VBG Lactic Acid 4.4 H* Sodium Potassium Chloride Carbon Dioxide Anion Gap BUN Creatinine GFR Calculation Glucose Uric Acid Calcium Phosphorus Magnesium Total Bilirubin Direct Bilirubin GGT AST ALT Alkaline Phosphatase Lactate Dehydrogenase Total Protein Albumin Globulin Albumin/Globulin Ratio Triglycerides Vitamin B1 Preliminary micro results at discharge 08/09/18 12:12 Blood Culture - Preliminary Blood 08/09/18 12:20 Blood Culture - Preliminary Blood Medical - DS: A/P - Patient/Caregiver Discharge Instructions Activity: increase activity as tolerated Diet: Regular Diet Prescriptions: predniSONE [Prednisone] 40 [facility] [place] [facility] Other Amb Orders: OT Discharge Order Location: None Selected Physical Therapy at Discharge - [facility] Location: None Selected - Follow up Plan Follow up with: Jorge A Chin DO [Primary Care Provider] - Disposition: Home, Self-Care Prognosis: Fair Rehab Potential: Fair Overall status at discharge: patient is progressing back to baseline Medical - DS: Qual - VTE Deep Vein Thrombosis/Pulmonary Embolism Present on Admission: No
[2018-08-11] MEDS: HYDROCODONE/APAP 7.5/325MG TABLET PO PRN (21:02)
[2018-08-11] MEDS: traZODone HCL 50 MG TABLET PO SCH (21:03)
[2018-08-11] MEDS: PRAMIPEXOLE 0.25 MG TABLET PO SCH (21:03)
[2018-08-11] MEDS: MIRTAZAPINE 15 MG TABLET PO SCH (21:03)
[2018-08-11] MEDS: SIMVASTATIN 10 MG TABLET PO SCH (21:04)
[2018-08-12] MEDS: 0.9 % SODIUM CHLORIDE 10 ML SYRINGE IV SCH ×2 (06:00→13:13)
[2018-08-12] MEDS: INSULIN LISPRO 1 UNIT/0.01 ML UNIT SQ SCH ×2 (07:38→11:37)
[2018-08-12] MEDS: cefTRIAXone 1 GM VIAL IV SCH (08:43)
[2018-08-12] MEDS: predniSONE 20 MG TABLET PO SCH (08:44)
[2018-08-12] MEDS: ENOXAPARIN 40 MG/0.4 ML SYRINGE SQ SCH (08:44)
[2018-08-12] MEDS: FAMOTIDINE 20 MG TABLET PO SCH (08:45)
[2018-08-12] MEDS: TIOTROPIUM BROMIDE 18 MCG INHALANT INH SCH (08:45)
[2018-08-12] MEDS: LOSARTAN 50 MG TABLET PO SCH (08:45)
[2018-08-12] MEDS: BENZONATATE 100 MG CAPSULE PO PRN ×2 (08:45→13:00)
== END 2018-08-12 13:50 | disposition home or self-care (01) | DRG 190 ==
LOC: ED 16:39 → MEDSUR 23:00
PROVIDERS: ADMIT Internal Medicine; ATTEND Internal Medicine